=== PATIENT | female | born 1965 | race Caucasian/White ===

== ENCOUNTER → 2017-07-19 | Outpatient (CLI) | payer BC ==
--- NOTE | 2017-07-20 08:15 | MM ---
Reason for exam: screening (asymptomatic). Last mammogram was performed 3 years and 10 months ago. Physical Findings: A clinical breast exam by your physician is recommended on an annual basis and results should be correlated with mammographic findings. MG Screening Mammo w CAD Bilateral CC and MLO view(s) were taken. Prior study comparison: September 26, 2013, bilateral digital screening mammo w/CAD. June 16, 2010, bilateral digital screening mammogram. There are scattered fibroglandular densities. There is no discrete abnormality. ASSESSMENT: Negative, BI-RAD 1 RECOMMENDATION: Routine screening mammogram of both breasts in 1 year.
== END | disposition home or self-care (01) ==
LOC: RADMAMWWP 09:51
PROVIDERS: ATTEND Obstetrics & Gynecology
DX: Z12.31 Encounter for screening mammogram for malignant neoplasm of breast (principal)
CPT/HCPCS: 77067

== ENCOUNTER → 2018-02-04 | Outpatient (CLI) | payer BC ==
[2018-02-04 13:44] LABS: Prothrombin Time 9.9 sec (9.0-12.0)
== END | disposition home or self-care (01) ==
LOC: LABPAT 13:01
PROVIDERS: ATTEND Orthopaedic Surgery
DX: Z01.812 Encounter for preprocedural laboratory examination (principal); T84.032D Mechanical loosening of internal right knee prosthetic joint, subsequent encounter; Z51.81 Encounter for therapeutic drug level monitoring; Z79.01 Long term (current) use of anticoagulants; Z96.651 Presence of right artificial knee joint
CPT/HCPCS: 36415; 85610; 87070

== ENCOUNTER 2018-02-08 08:00 | Inpatient (IN) | payer BC ==
[2018-01-27 11:17] VITALS: BMI 32.4
--- NOTE | 2018-02-07 09:19 | HP ---
HISTORY AND PHYSICAL CHIEF COMPLAINT: Right knee pain. 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 She had a total knee arthroplasty in 2011. She has had pain ever since. She notes occasional giving way and swelling. She has had a recent injection by another orthopedic surgeon. She has been wearing a brace. She notes it bothers her with all weight bearing activities. PAST MEDICAL HISTORY: Significant for arthritis. PAST SURGICAL HISTORY: Significant for bilateral knee surgery to include right knee arthroscopy and subsequent total knee arthroplasty and left knee arthroscopy. CURRENT MEDICATIONS: Aspirin and Tylenol. ALLERGIES: She notes allergies to AUGMENTIN. FAMILY HISTORY: Family history is negative. SOCIAL HISTORY: Social history is negative for current tobacco or alcohol use. REVIEW OF SYSTEMS: Sixteen point review of systems otherwise reviewed and is noncontributory. PHYSICAL EXAMINATION: On examination, the patient is a well-developed, well-nourished female, approximately 5 feet 4 inches, 180 pounds of mesomorphic habitus. HEENT exam is nonfocal. Neck is supple. She has painless passive motion to her right hip. Straight leg raise is negative. Active motion right knee -8 to 85 degrees of flexion. She is tender about the medial and lateral joint line. She has mild effusion. She has a healed incision. There is no increased warmth or erythema. She has moderate valgus laxity. Her distal neurovascular exam appears intact in the right lower extremity. X-rays obtained in the office of the right knee show a total knee arthroplasty with malpositioning of the tibial component. There is lucency about the tibial base plate. There is also lucency about the anterior aspect of the femoral component. 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 RECOMMENDATIONS: I talked to the patient at length regarding her condition and treatment options. At this point, she is quite symptomatic and limited because of pain. She opts to proceed with surgery. We will plan to proceed with right revision total knee arthroplasty. Risks and benefits were discussed at length in layman's terms. We will institute DVT prophylaxis postoperatively. MMODL / IJN: [id number] /
[~2018-02-08 08:00] MED LIST: ACETAMINOPHEN TAB 500 MG TAB PO ONE; DEXAMETHASONE SOD PHOSPHATE 10 MG/ML 1 ML VIAL IV ONE; LIDOCAINE 1% 20 ML VIAL (10MG/ML) FOR IV START INTRADERMA PRN; MELOXICAM 7.5 MG TAB PO ONE; MIDAZOLAM 2 MG/2 ML VIAL IV PRN; ONDANSETRON 4 MG/2 ML VIAL IVP ONE; TRANEXAMIC ACID 1,000 MG in SODIUM CHLORIDE 0.9% 50 ML IVPB ONE; ceFAZolin IN SWFI 2 GM/20 ML SYRINGE IVP ONE; fentaNYL (PF) 50 MCG/ML 2 ML AMP IV PRN
[2018-02-08] MEDS: LACTATED RINGERS 1,000 ML IV SCH ×2 (11:20→18:53)
[2018-02-08] MEDS ORDERED: MIDAZOLAM 2 MG/2 ML VIAL ONE ×2 (11:55→14:30)
[2018-02-08] MEDS ORDERED: fentaNYL (PF) 50 MCG/ML 2 ML AMP ONE ×2 (11:56→14:30)
[2018-02-08] MEDS ORDERED: MIDAZOLAM 2 MG/2 ML VIAL IVP ONE (12:06)
--- NOTE | 2018-02-08 13:01 | P.ONQ ---
Anesthesiology Proc Note - PNB - Peripheral Nerve Block Performed Right Adductor Canal Infusion Time Out Performed: Yes Procedure Start Time: 12:06 Procedure Stop Time: 12:22 Indication: Acute Post-Operative Pain, Requested by physician Sedation Type: Sedate with meaningful contact maintained Preparation: Sterile Dressing Position: Supine Catheter: Indwelling Needle Types: On-Q Needle Size: 100mm (4") Needle Gauge: 21 Technique: Ultrasound Injectate: 0.5% Ropivacaine (see comment for volume) (ropi .5%) Blood Aspirated: No Pain Paresthesia on Injection Noted: No Resistance on Injection: Normal Events: Uneventful and Well Tolerated
[2018-02-08] MEDS ORDERED: TRANEXAMIC ACID 1,000 MG/10 ML VIAL ONE (14:30)
[2018-02-08] MEDS ORDERED: PROPOFOL 10 MG/ML 20 ML VIAL IV ONE (14:30)
[2018-02-08] MEDS ORDERED: SODIUM CHLORIDE 0.9% 100 ML BAG ONE (14:30)
[2018-02-08] MEDS ORDERED: LABETALOL 5 MG/ML VIAL MDV ONE (14:30)
[2018-02-08] MEDS ORDERED: HYDROmorphone (PF) 1 MG/ML ONE (14:30)
[2018-02-08] MEDS ORDERED: ceFAZolin 3,000 MG in SODIUM CHLORIDE 0.9% IRRIGATIO 3,000 ML IRRIGATION ONE (14:57)
[2018-02-08] MEDS ORDERED: LACTATED RINGERS 1,000 ML IV ONE (15:11)
[2018-02-08] MEDS: ROPIVACAINE 1,100 MG, SODIUM CHLORIDE 0.9% 330 ML MISCELLANE PRN ×4 (15:36→17:32)
[2018-02-08] MEDS ORDERED: ONDANSETRON 4 MG/2 ML VIAL IVP PRN (16:57)
[2018-02-08] MEDS ORDERED: HYDROmorphone 1 MG/ML 1 ML SYRINGE IVP PRN ×3 (16:57)
[2018-02-08] MEDS ORDERED: traMADol 50 MG TAB PO PRN (16:57)
[2018-02-08] MEDS ORDERED: MAGNESIUM HYDROXIDE 2,400 MG/10 ML CUP PO PRN (16:57)
[2018-02-08] MEDS ORDERED: NALOXONE 0.4 MG/ML 1 ML VIAL IV PRN (16:57)
--- NOTE | 2018-02-08 17:24 | P.OP ---
Date of Procedure: 02/08/18 Preoperative Diagnosis: Aseptic loosening right total knee arthroplastypainful Postoperative Diagnosis: Same Procedure(s) Performed: Revision right total knee arthroplasty Implants: Depuy TC3 size 2 cemented femoral component, size 2 cemented tibial component, 12.5 mm articular surface, 4 mm distal lateral femoral augment, 5 mm medial tibial plateau augment. Anesthesia: spinal Surgeon: Darien Vincent Steam Fitter #1: Anam Padilla Estimated Blood Loss (ml): 100 Pathology: other (Frozen section) Condition: stable Disposition: PACU Indications for Procedure: The patient's a 52-year-old female who presents with progressive right knee pain and instability consistent with aseptic loosening of her right total knee arthroplasty. A discussion of the risks and benefits of operative intervention was made with patient. She opted to proceed with surgery. Operative risks to include infection, neurovascular injury, development of blood clots, possible component loosening, possible component failure need for subsequent procedures was discussed. Informed consent was obtained. Operative Findings: As below Description of Procedure: The patient was brought to the operating room, and after induction of spinal anesthesia the right lower extremity was prepped and draped in normal fashion. The tourniquet was inflated to 270 mmHg. This incision was utilized. The skin and subcu changed tissues were divided sharply. Electrocautery was used for hemostasis. A medial parapatellar arthrotomy was performed. The patella was everted. The medial soft tissues to include the superficial and deep portions medial collateral ligament were elevated subperiosteally. The knee was flexed. The polyethylene was easily removed. A small sagittal saw was utilized for interruption of the cement mantle on the femoral and tibial components. These were easily removed with minimal bone loss. She did have significant compression of the medial tibial plateau. Synovial tissue was excised and sent for frozen section which showed no active significant acute inflammation. The previous cement was removed. The tibial canal was then reamed distally to 12 mm. The proximal reamer was inserted the appropriate depth as well. The proximal tibial 29 mm broach was inserted to the appropriate depth. There was deficient bone medially therefore planned on a 5 mm medial wedge. The tibia sized most appropriate size to. The trial component was placed and the medial tibial cut was made to facilitate the 5 mm wedge. Minimal bone was resected laterally. Attention was then paid towards preparing the distal femur. An intramedullary guide was gently inserted for the distal cutting block. The distal cutting block was placed and I planned on a 4 mm augment laterally. The size 2 femoral cutting block was then placed with a 4 mm distal lateral augment. The anterior, posterior, and chamfer cuts were freshened up. There was minimal if any bone loss. The box guide was placed and the box cut was made with a reciprocating saw. The bone was removed one block. The trial size 2 TC 3 femoral component was placed and was fully seated. A 12.5 mm articular surface was placed. The knee was taken through range of motion. It was stable in flexion and extension with varus and valgus stress. I was able to obtain full flexion and extension. Attention was then paid towards the patella component. Fibrous tissue was removed that was covering this. The patellar components appear to be well fixed and tracked well. The wound was then irrigated with pulsatile lavage. The trial components were then removed. The tibial component was assembled and was seated. Cement was placed under the tibial base plate would but not on the metaphyseal sleeve. This was fully seated. The femoral component was cemented in placed and was fully seated. Excess cement was removed. The 12.5 mm articular surface displaced and knee was put in full extension. After the cement had sufficiently hardened, the knee was again taken through range of motion. Again I had good stability in flexion and extension with varus and valgus stress. Pulsatile lavage was again utilized. The tourniquet was deflated the proximal 100 minutes total tourniquet time. Final hemostasis was obtained with electrocautery. The medial parapatellar arthrotomy was closed with #2 Ethibond suture. A deep drain was placed exiting laterally. The subcutaneous tissues were reapproximated interrupted 2-0 Vicryl sutures. Skin was reapproximated with with 3-0 subcuticular strata fix suture. Skin tape and adhesive was applied. A sterile dressing was applied. The patient was awoken from sedation and transferred to recovery room in good condition. Blood loss was estimated at 100 cc. No complications were incurred. Sponge and needle counts were correct in the case.
[2018-02-08] MEDS: HYDROmorphone 1 MG/ML 1 ML SYRINGE IVP ONE ×2 (17:47→17:55)
--- NOTE | 2018-02-08 19:26 | XR ---
PROCEDURE: XR knee limited RT 2 views DATE AND TIME: 02/08/2018 5:44 PM REFERRING PHYSICIAN: Anam Padilla CLINICAL INDICATION: PHH, Evaluation for Postop abnormality and alignment TECHNIQUE: AP and crosstable lateral views. COMPARISON: None FINDINGS: Right TKR in anatomic position and alignment. Lateral surgical drain noted anteriorly. Post operative changes appreciated, no unexpected postoperative findings. IMPRESSION: Postoperative 2 views.
[2018-02-08] MEDS: SENNOSIDES-DOCUSATE SODIUM 1 EACH TAB PO SCH (19:53)
[2018-02-08] MEDS: LISINOPRIL 10 MG TAB PO SCH (19:53)
[2018-02-08] MEDS: HYDROcodone/APAP 7.5-325MG 1 EACH TAB PO PRN (19:54)
[2018-02-08] MEDS: ceFAZolin IN SWFI 2 GM/20 ML SYRINGE IVP SCH (23:30)
[2018-02-09] MEDS: HYDROcodone/APAP 7.5-325MG 1 EACH TAB PO PRN ×4 (02:39→20:32)
--- NOTE | 2018-02-09 05:27 | P.PN ---
Progress Note - Text Progress Note Date: 02/09/18 52 y/o female s/p right knee TKA revision with Dr. Vincent. Doing well, requiring minimal narcotics. Has slept well overnight. Reports her pain is 3-4 /10, having some anterior knee pain but overall a much better experience than previous surgery. Reports some numbness in the area but no motor weakness. Plan is to continue with current settings.
[2018-02-09 07:12] LABS: Basophils % (A) 0 %; Eosinophils % (A) 0 %; HCT 34.3 % (34.0-46.0); HGB 10.8 gm/dL (11.4-16.0); Lymphocytes # (A) 1.6 k/uL (1.0-4.8); Lymphocytes % (A) 11 %; MCH 31.2 pg (25.0-35.0); MCHC 31.5 g/dL (31.0-37.0); Monocytes # (A) 0.7 k/uL (0-1.0); Monocytes % (A) 5 %; Neutrophils # (A) 12.5 k/uL (1.3-7.7); Neutrophils % (A) 84 %; Platelet Count 285 k/uL (150-450); RBC 3.47 m/uL (3.80-5.40); WBC 14.9 k/uL (3.8-10.6)
[2018-02-09 08:15] LABS: Anion Gap 7 mmol/L; Blood Urea Nitrogen 13 mg/dL (7-17); Calcium 9.1 mg/dL (8.4-10.2); Carbon Dioxide 24 mmol/L (22-30); Chloride 106 mmol/L (98-107); Glucose 114 mg/dL (74-99); Potassium 4.8 mmol/L (3.5-5.1); Sodium 137 mmol/L (137-145)
[2018-02-09] MEDS: LISINOPRIL 10 MG TAB PO SCH (08:56)
[2018-02-09] MEDS: RIVAROXABAN 10 MG TAB PO SCH (08:56)
[2018-02-09] MEDS: ceFAZolin IN SWFI 2 GM/20 ML SYRINGE IVP SCH (11:49)
--- NOTE | 2018-02-09 13:24 | P.PN ---
Subjective Progress Note Date: 02/09/18 Principal diagnosis: Status post r revision ight total knee arthroplasty Patient seen today resting in her hospital bed, she appears comfortable. She's been ambulating well with physical therapy. She denies any chest pain or shortness of breath. Objective - Vital Signs Vital signs: Vital Signs Temp 97.8 F 02/09/18 07:53 Pulse 76 02/09/18 07:53 Resp 16 02/09/18 07:53 BP 112/67 02/09/18 07:53 Pulse Ox 97 02/09/18 07:53 Intake & Output 02/08/18 02/09/18 02/09/18 18:59 06:59 18:59 Intake Total 1801 1800 Output Total 850 200 300 Balance 951 1600 -300 Weight 83.007 kg Intake: IV 1801 Intake, IV Titration 1600 Amount Lactated Ringers 1,000 ml 1600 @ 100 mls/hr IV .Q10H [facility] Rx#:[id number] Other 200 Output: Drainage 200 Right Knee 200 Urine 750 300 Uretheral (Veliz) 300 Estimated Blood Loss 100 Other: Voiding Method Indwelling Catheter Indwelling Catheter - Exam Right lower extremity: Incision is clean, dry, and intact. The prineo tape is in good condition. There is minimal soft tissue swelling and ecchymosis surrounding the medial and lateral aspects of the incision. Calf is soft, no tenderness with palpation. Plantar flexion, dorsiflexion, EHL, FHL are intact. Sensory exam to light touch throughout the extremity is intact, dorsal pedis pulses 2+. - Labs CBC & Chem 7: 02/09/18 06:51 02/09/18 06:51 Labs: Abnormal Lab Results - Last 24 Hours (Table) 02/09/18 02/09/18 Range/Units 06:51 06:51 WBC 14.9 H (3.8-10.6) k/uL RBC 3.47 L (3.80-5.40) m/uL Hgb 10.8 L (11.4-16.0) gm/dL Neutrophils # 12.5 H (1.3-7.7) k/uL Glucose 114 H (74-99) mg/dL Assessment and Plan Plan: Assessment: 1. Postop day 1 status post revision right total knee arthroplasty Plan: Pain control, continue supportive oral medication GI and DVT prophylaxis, continue current medication Daily dressing changes/ice and elevate Encourage incentive spirometer Medical recommendations Discharge planning: Patient will likely be discharged tomorrow Time with Patient: Less than 30
--- NOTE | 2018-02-09 13:35 | P.CONS ---
History of Present Illness - Reason for Consult Recommendations regarding antidepressive medications. - History of Present Illness 52-year-old female came in for revision arthroplasty of the right knee. Patient 's x-ray underwent surgery for this point of time patient the did pass gas did not have any bowel movement yet that any fever chills nausea vomiting doesn't have a dennison catheter. no surgical drainage in place. Review of Systems REVIEW OF SYSTEMS: CONSTITUTIONAL: No fever, no malaise, no fatigue. HEENT: No recent visual problems or hearing problems. Denied any sore throat. CARDIOVASCULAR: No chest pain, orthopnea, PND, no palpitations, no syncope. PULMONARY: No shortness of breath, no cough, no hemoptysis. GASTROINTESTINAL: No diarrhea, no nausea, no vomiting, no abdominal pain. Normoactive bowel sounds. NEUROLOGICAL: No headaches, no weakness, no numbness. HEMATOLOGICAL: Denies any bleeding or petechiae. GENITOURINARY: Denies any burning micturition, frequency, or urgency. MUSCULOSKELETAL/RHEUMATOLOGICAL: Denies any joint pain, swelling, or any muscle pain. ENDOCRINE: Denies any polyuria or polydipsia. The rest of the 14-point review of systems is negative. Past Medical History Past Medical History: Deep Vein Thrombosis (DVT), GERD/Reflux, Osteoarthritis ( OA), Skin Disorder Additional Past Medical History / Comment(s): varicose veins,urinary freq and nighttime freq,sun rash to face,DVT post Lt total knee History of Any Multi-Drug Resistant Organisms: None Reported Past Surgical History: Joint Replacement Additional Past Surgical History / Comment(s): rt knee replacement,left knee replacement Past Anesthesia/Blood Transfusion Reactions: No Reported Reaction Additional Past Anesthesia/Blood Transfusion Reaction / Comm: takes awhile to wake up, and woke up during last surgery,no hx blood transfusion Smoking Status: Never smoker - Past Family History Mother Family Medical History: No Reported History Sister(s) Family Medical History: Cancer Medications and Allergies Home Medications Medication Instructions Recorded Confirmed Type Aspirin 81 mg PO DAILY 01/27/18 02/08/18 History Calcium Carbonate [Tums] 500 mg PO DAILY PRN 01/27/18 02/08/18 History Cholecalciferol (Vitamin D3) 2,000 unit PO DAILY 01/27/18 02/08/18 History [Vitamin D3] Multivitamins, Thera [Multivitamin 1 tab PO DAILY 01/27/18 02/08/18 History (formulary)] Ergocalciferol [Vitamin D2] 50,000 unit PO Q7D 02/04/18 02/08/18 History Lisinopril [Zestril] 10 mg PO 1800 02/04/18 02/08/18 History Acetaminophen Tab [Tylenol Tab] 1,000 mg PO BID PRN 02/08/18 02/08/18 History Allergies Allergy/AdvReac Type Severity Reaction Status Date / Time amoxicillin [From Augmentin] Allergy Rash/Hives Verified 02/08/18 19:38 clavulanic acid Allergy Rash/Hives Verified 02/08/18 19:38 [From Augmentin] Physical Exam Vitals: Vital Signs Temp Pulse Pulse Resp BP BP Pulse Ox 02/09/18 07:53 97.8 F 76 16 112/67 97 02/09/18 00:55 98.4 F 98 16 121/77 97 02/08/18 20:30 85 128/76 02/08/18 20:15 84 134/79 02/08/18 20:00 85 130/77 02/08/18 19:45 83 130/75 02/08/18 19:30 82 135/81 02/08/18 19:15 86 134/85 02/08/18 19:00 89 133/84 02/08/18 18:45 82 142/89 02/08/18 18:30 97.9 F 82 16 168/103 97 02/08/18 18:06 83 16 130/73 94 L 02/08/18 17:50 80 16 172/97 138/79 97 02/08/18 17:35 71 16 168/96 100 02/08/18 17:20 98 F 90 16 190/110 96 Intake and Output 02/08/18 02/09/18 02/09/18 22:59 06:59 14:59 Intake Total 1600 1000 Output Total 850 200 300 Balance 750 800 -300 Intake: IV 800 Intake, IV Titration 800 800 Amount Lactated Ringers 1,000 ml 800 800 @ 100 mls/hr IV .Q10H [facility] Rx#:[id number] Other 200 Output: Drainage 200 Right Knee 200 Urine 750 300 Uretheral ([place]enn[place]) 300 Estimated Blood Loss 100 Other: Voiding Method Indwelling Catheter Indwelling Catheter Indwelling Catheter Weight 83.007 kg PHYSICAL EXAMINATION: GENERAL: The patient is alert and oriented x3, not in any acute distress. Well developed, well nourished. HEENT: Pupils are round and equally reacting to light. EOMI. No scleral icterus. No conjunctival pallor. Normocephalic, atraumatic. No pharyngeal erythema. No thyromegaly. CARDIOVASCULAR: S1 and S2 present. No murmurs, rubs, or gallops. PULMONARY: Chest is clear to auscultation, no wheezing or crackles. ABDOMEN: Soft, nontender, nondistended, normoactive bowel sounds. No palpable organomegaly. MUSCULOSKELETAL: Deferred to arthritic surgery. EXTREMITIES: No cyanosis, clubbing, or pedal edema. NEUROLOGICAL: Gross neurological examination did not reveal any focal deficits. SKIN: No rashes. Results CBC & Chem 7: 02/09/18 06:51 02/09/18 06:51 Labs: Abnormal Lab Results - Last 24 Hours (Table) 02/09/18 02/09/18 Range/Units 06:51 06:51 WBC 14.9 H (3.8-10.6) k/uL RBC 3.47 L (3.80-5.40) m/uL Hgb 10.8 L (11.4-16.0) gm/dL Neutrophils # 12.5 H (1.3-7.7) k/uL Glucose 114 H (74-99) mg/dL Assessment and Plan Plan: -Hypertension: Blood pressure is fairly controlled on her home regimen of 5 antidepressive medication which can be continued. -Postoperative day one status post revision arthroplasty of the right knee: Pain management due to prophylaxis per primary service -History of DVT in the past -Osteoarthritis primary multiple joints.
[2018-02-09] MEDS ORDERED: HYDROmorphone 2 MG TAB PO PRN ×2 (15:42)
[2018-02-09] MEDS ORDERED: HYDROmorphone 4 MG TABLET PO PRN (15:43)
[2018-02-09] MEDS ORDERED: LISINOPRIL 10 MG TAB PO SCH (18:00)
[2018-02-09] MEDS: LACTATED RINGERS 1,000 ML IV SCH (19:06)
[2018-02-09] MEDS: SENNOSIDES-DOCUSATE SODIUM 1 EACH TAB PO SCH (19:41)
[2018-02-10] MEDS: HYDROcodone/APAP 7.5-325MG 1 EACH TAB PO PRN ×3 (02:16→13:08)
[2018-02-10] MEDS: RIVAROXABAN 10 MG TAB PO SCH (08:05)
[2018-02-10] MEDS ORDERED: LISINOPRIL 10 MG TAB PO SCH (09:00)
[2018-02-10 09:16] VITALS: BP 142/96; PULSE 100; RESP 18; TEMP 98.4
--- NOTE | 2018-02-10 10:27 | P.PN ---
Subjective Progress Note Date: 02/10/18 Principal diagnosis: Status post r revision ight total knee arthroplasty Patient seen today resting in her hospital bed, she appears comfortable. She's been ambulating well with physical therapy. She denies any chest pain or shortness of breath. Objective - Vital Signs Vital signs: Vital Signs Temp 98.4 F 02/10/18 09:00 Pulse 100 02/10/18 09:00 Resp 18 02/10/18 09:00 BP 142/96 02/10/18 09:00 Pulse Ox 99 02/10/18 09:00 Intake & Output 02/09/18 02/10/18 02/10/18 18:59 06:59 18:59 Intake Total 240 500 Output Total 300 Balance -60 500 Weight 83.007 kg Intake: Oral 240 Other 500 Output: Urine 300 Uretheral (Veliz) 300 Other: Voiding Method Indwelling Catheter # Voids 2 3 - Exam Right lower extremity: Incision is clean, dry, and intact. The prineo tape is in good condition. There is minimal soft tissue swelling and ecchymosis surrounding the medial and lateral aspects of the incision. Calf is soft, no tenderness with palpation. Plantar flexion, dorsiflexion, EHL, FHL are intact. Sensory exam to light touch throughout the extremity is intact, dorsal pedis pulses 2+. - Labs CBC & Chem 7: 02/09/18 06:51 02/09/18 06:51 Assessment and Plan Plan: Assessment: 1. Postop day #2 status post revision right total knee arthroplasty Plan: Pain control, continue supportive oral medication GI and DVT prophylaxis, will dc on Eliquis 2.5mg bid for 14 days Daily dressing changes/ice and elevate Encourage incentive spirometer Medical recommendations Discharge planning: Patient will be dc home today Time with Patient: Less than 30
--- NOTE | 2018-02-10 10:32 | P.DS ---
Providers Date of admission: 02/08/18 10:51 Expected date of discharge: 02/10/18 Attending physician: Darien Vincent Consults: 02/08/18 16:59 Consult Physician Routine Consulting Provider: Sukumar Frankel Consult Reason/Comments: Medical Management Do you want consulting provider notified?: Yes Primary care physician: Isra Newby [facility] Course: Date of admission: 02/08/2018 Date of discharge: 02/10/2018 Admission diagnosis: Status post revision right total knee arthroplasty Discharge diagnosis: Same Attending physician: Dr. Vincent Surgical procedures: Revision right total knee arthroplasty Brief history: Patient is a 52-year-old female with a history of with progress pain involving the right knee. Patient is a history of a right total knee arthroplasty, has progressively gotten worse with pain over the last few years. She's tried all conservative measures at this time. She elected to proceed with a revision right total knee arthroplasty. Hospital course: Details of patient's surgery can be found in operative report. Patient tolerated the procedure well and was subsequently transported to orthopedic floor. Patient's orthopeidc and medical care was provided daily. Patient had daily laboratory tests performed for evaluation of overall blood counts. Patient had daily physical therapy to include strengthening range of motion as well as education with walker ambulation. Patient had daily CPM usage as part of their physical therapy program. Patient was treated with Xarelto for their postoperative DVT prophylaxis during their inpatient stay. Patient was noted to have a relatively uneventful postoperative course. Patient reported satisfactory pain control with oral pain medications by postoperative day 0. Patient showed satisfactory progress with physical therapy. Patient moved steadily through the program and had no difficulty meeting the goals by postoperative day 2. Given patient's otherwise satisfactory course and having met physical therapy goals, plan is to discharge patient home on postoperative day 2. Discharge condition/disposition: Patient will be discharged home in stable condition. Discharge medications: Instructions are given on resumption of patient's normal daily medications per primary care recommendation, in addition patient will be prescribed Tulia 10 mg/325 mg, tramadol 50 mg, Colace 100 mg, Eliquis 2.5mg. Discharge instructions: 1. Wound care and infection precautions, keep incision dry and covered while showering], no lotions, creams, moisturizers. No soaking, tubs, pools, hottubs. Do not scrub over the incision. 2. Weight-bear [as tolerated] with walker / cane until follow-up. 3. Ice and elevate when necessary. Do not exceed 20 minutes per hour with ice pack. 4. Utilize compression sleeve until seen at first follow up appointment. 5. Visiting nursing care. 6. Home physical therapy [including home CPM]. 7. Pain meds and anticoagulants per prescription. 8. Pain medication has potential to cause constipation. Increase oral fluid and fiber intake. Contact primary care provider if you have not had a bowel movement within 48 hours after discharge 9. No anti-inflammatory medication until discussed at first post operative visit, this including Motrin, Aleve, Mobic, Diclofenac. 10. Follow up in office at 2 weeks postop with Tashi Padilla PA-C 11. Follow up with your primary care doctor 7-10 days after discharge. 12. Contact [facility] with any questions, . Procedures: Revision right total knee arthroplasty Patient Condition at Discharge: Good Plan - Discharge Summary Discharge Rx Participant: Yes New Discharge Prescriptions: New Apixaban [Eliquis] 2.5 mg PO BID #30 tab Docusate [Colace] 100 mg PO DAILY #30 capsule Hydrocodone/Acetaminophen [Tulia 10-325] 1 - 2 each PO Q6H PRN #56 tab PRN Reason: Pain traMADol HCl [Ultram] 50 mg PO Q6H PRN #28 tab PRN Reason: Pain No Action Aspirin 81 mg PO DAILY Multivitamins, Thera [Multivitamin (formulary)] 1 tab PO DAILY Cholecalciferol (Vitamin D3) [Vitamin D3] 2,000 unit PO DAILY Calcium Carbonate [Tums] 500 mg PO DAILY PRN PRN Reason: Heartburn Lisinopril [Zestril] 10 mg PO 1800 Ergocalciferol [Vitamin D2] 50,000 unit PO Q7D Acetaminophen Tab [Tylenol Tab] 1,000 mg PO BID PRN PRN Reason: Pain Discharge Medication List Aspirin 81 mg PO DAILY 01/27/18 [History] Calcium Carbonate [Tums] 500 mg PO DAILY PRN 01/27/18 [History] Cholecalciferol (Vitamin D3) [Vitamin D3] 2,000 unit PO DAILY 01/27/18 [History] Multivitamins, Thera [Multivitamin (formulary)] 1 tab PO DAILY 01/27/18 [History ] Ergocalciferol [Vitamin D2] 50,000 unit PO Q7D 02/04/18 [History] Lisinopril [Zestril] 10 mg PO 1800 02/04/18 [History] Acetaminophen Tab [Tylenol Tab] 1,000 mg PO BID PRN 02/08/18 [History] Apixaban [Eliquis] 2.5 mg PO BID #30 tab 02/10/18 [Rx] Docusate [Colace] 100 mg PO DAILY #30 capsule 02/10/18 [Rx] Hydrocodone/Acetaminophen [Tulia 10-325] 1 - 2 each PO Q6H PRN #56 tab 02/10/18 [Rx] traMADol HCl [Ultram] 50 mg PO Q6H PRN #28 tab 02/10/18 [Rx] Follow up Appointment(s)/Referral(s): [facility], [NON-STAFF] - Anam Padilla, GRECIA [PHYSICIAN COOKING [employer]OW [employer]OST] - 2 Weeks Activity/Diet/Wound Care/Special Instructions: Orthopedic Discharge Instructions: 1. Wound care and infection precautions, keep incision dry and covered while showering, no lotions, creams, moisturizers. No soaking, pools, hot tubs. Do not scrub over incision. 2. Weight-bear as tolerated with walker / cane until follow-up. 3. Ice and elevate when necessary. Do not exceed 20 minutes per hour with ice pack. 4. Utilize compression sleeve until seen at first follow up appointment. 5. Pain meds and anticoagulants per prescription. 6. Pain medication has potential to cause constipation. Increase oral fluid and fiber intake. Contact primary care provider if you have not had a bowel movement within 48 hours after discharge. 7. No anti-inflammatory medication until discussed at first post operative visit, this including Motrin, Aleve, Mobic, Diclofenac. 8. Follow up in office at 2 weeks postop with Tashi Padilla PA-C 9. Follow up with your primary care doctor 7-10 days after discharge. 10. Contact [facility] with any questions, . Discharge Disposition: HOME WITH HOME HEALTH SERVICES
--- NOTE | 2018-02-10 15:01 | P.PN ---
Subjective No overnight events patient is clinically doing well. Can be discharged from medical perspective Objective - Vital Signs Vital signs: Vital Signs Temp 98.4 F 02/10/18 09:00 Pulse 100 02/10/18 09:00 Resp 18 02/10/18 09:00 BP 142/96 02/10/18 09:00 Pulse Ox 99 02/10/18 09:00 Intake & Output 02/09/18 02/10/18 02/10/18 18:59 06:59 18:59 Intake Total 240 500 Output Total 300 Balance -60 500 Weight 83.007 kg Intake: Oral 240 Other 500 Output: Urine 300 Uretheral (Veliz) 300 Other: Voiding Method Indwelling Catheter # Voids 2 3 - Exam PHYSICAL EXAMINATION: GENERAL: The patient is alert and oriented x3, not in any acute distress. Well developed, well nourished. HEENT: Pupils are round and equally reacting to light. EOMI. No scleral icterus. No conjunctival pallor. Normocephalic, atraumatic. No pharyngeal erythema. No thyromegaly. CARDIOVASCULAR: S1 and S2 present. No murmurs, rubs, or gallops. PULMONARY: Chest is clear to auscultation, no wheezing or crackles. ABDOMEN: Soft, nontender, nondistended, normoactive bowel sounds. No palpable organomegaly. MUSCULOSKELETAL: Deferred to arthritic surgery. EXTREMITIES: No cyanosis, clubbing, or pedal edema. NEUROLOGICAL: Gross neurological examination did not reveal any focal deficits. SKIN: No rashes. - Labs CBC & Chem 7: 02/09/18 06:51 02/09/18 06:51 Assessment and Plan Plan: -Hypertension: Blood pressure is fairly controlled on her home regimen of antihypertensive medication which can be continued. -Postoperative day 2 status post revision arthroplasty of the right knee: Pain management due to prophylaxis per primary service -History of DVT in the past -Osteoarthritis primary multiple joints. Patient is medically stable to be discharged
== END 2018-02-10 13:35 | disposition home health service (06) | DRG 468 ==
LOC: 2ORMAIN 10:51 → 3SUR 17:08
PROVIDERS: ADMIT Orthopaedic Surgery; ATTEND Orthopaedic Surgery
PROC: 0SRC0J9 Replacement of Right Knee Joint with Synthetic Substitute, Cemented, Open Approach (ICD-10-PCS; 2018-02-08)
PROC: 0SPC0JZ Removal of Synthetic Substitute from Right Knee Joint, Open Approach (ICD-10-PCS; principal; 2018-02-08 12:30)
DX: T84.032A Mechanical loosening of internal right knee prosthetic joint, initial encounter (principal); I10 Essential (primary) hypertension; M25.361 Other instability, right knee; K21.9 Gastro-esophageal reflux disease without esophagitis; M19.91 Primary osteoarthritis, unspecified site; I83.90 Asymptomatic varicose veins of unspecified lower extremity; R35.0 Frequency of micturition; Z79.82 Long term (current) use of aspirin; Z79.899 Other long term (current) drug therapy; Z96.652 Presence of left artificial knee joint; Z86.718 Personal history of other venous thrombosis and embolism; Y79.2 Prosthetic and other implants, materials and accessory orthopedic devices associated with adverse incidents; Z82.49 Family history of ischemic heart disease and other diseases of the circulatory system
CPT/HCPCS: 80048; 85025; 88305; 88331

== ENCOUNTER → 2018-10-14 | Outpatient (CLI) | payer BC ==
--- NOTE | 2018-10-18 13:16 | MM ---
Reason for exam: screening (asymptomatic). Last mammogram was performed 1 year and 3 months ago. Physical Findings: A clinical breast exam by your physician is recommended on an annual basis and results should be correlated with mammographic findings. MG Screening Mammo w CAD Bilateral CC and MLO view(s) were taken. Prior study comparison: July 19, 2017, bilateral MG screening mammo w CAD. There are scattered fibroglandular densities. No significant changes when compared with prior studies. ASSESSMENT: Negative, BI-RAD 1 RECOMMENDATION: Routine screening mammogram of both breasts in 1 year.
== END | disposition home or self-care (01) ==
LOC: RADMAMWWP 11:53
PROVIDERS: ATTEND Family Medicine
DX: Z12.31 Encounter for screening mammogram for malignant neoplasm of breast (principal)
CPT/HCPCS: 77067

== ENCOUNTER 2018-10-18 09:04 | Day surgery (SDC) | payer BC ==
[2018-10-17 09:05] VITALS: BMI 31.0
[~2018-10-18 09:04] MED LIST changes: -ACETAMINOPHEN TAB 500 MG TAB PO ONE; -DEXAMETHASONE SOD PHOSPHATE 10 MG/ML 1 ML VIAL IV ONE; +LACTATED RINGERS 1,000 ML IV SCH; -MELOXICAM 7.5 MG TAB PO ONE; -MIDAZOLAM 2 MG/2 ML VIAL IV PRN; -ONDANSETRON 4 MG/2 ML VIAL IVP ONE; -TRANEXAMIC ACID 1,000 MG in SODIUM CHLORIDE 0.9% 50 ML IVPB ONE; -ceFAZolin IN SWFI 2 GM/20 ML SYRINGE IVP ONE; -fentaNYL (PF) 50 MCG/ML 2 ML AMP IV PRN
[2018-10-18 09:48] VITALS: TEMP 98.8
[2018-10-18] MEDS ORDERED: PROPOFOL 10 MG/ML 20 ML VIAL IV ONE (10:37)
[2018-10-18] MEDS ORDERED: MIDAZOLAM 2 MG/2 ML VIAL ONE (10:37)
[2018-10-18] MEDS ORDERED: fentaNYL (PF) 50 MCG/ML 2 ML AMP ONE (10:37)
--- NOTE | 2018-10-18 11:03 | P.PCN ---
Date of Procedure: 10/18/18 Procedure(s) Performed: Procedure: Total colonoscopy. Preoperative diagnosis: Screening for neoplasia. Postoperative diagnosis: Exam within normal limits. Preparation: HalfLytely prep. Sedation: Was provided by anesthesia. Brief clinical history: The patient is a 53-year-old female who is scheduled for this evaluation for screening for neoplasia age being her risk factor. No family history of colon cancer. She has no abdominal complaints, bleeding or anemia. This would be her first colonoscopy. Procedure: With the patient on her left lateral decubitus position and after informed consent and adequate sedation, the perianal area was inspected and it did not show any fissures or fistulas. There were no masses felt on digital rectal examination. The Olympus CFH 190L video colonoscope was then inserted in the rectum in the usual fashion and advanced to the cecum. The mucosa appeared healthy. No polyps or tumors were seen or any obvious diverticular disease or other pathology. I retroflexed the endoscope in the rectum before the endoscope was withdrawn. The patient tolerated the procedure well. Plan: The patient was reassured. She will follow-up with you as planned and I recommended repeat exam in 10 years.
[2018-10-18 11:23] VITALS: BP 125/84; PULSE 64; RESP 18
== END 2018-10-18 11:29 | disposition home or self-care (01) ==
LOC: ORWHC2ENDO 09:04
DX: Z12.11 Encounter for screening for malignant neoplasm of colon (principal); I10 Essential (primary) hypertension; K21.9 Gastro-esophageal reflux disease without esophagitis; M19.90 Unspecified osteoarthritis, unspecified site; Z86.718 Personal history of other venous thrombosis and embolism; Z96.653 Presence of artificial knee joint, bilateral; Z88.0 Allergy status to penicillin; Z79.899 Other long term (current) drug therapy
CPT/HCPCS: 81025; J2250; J3010; J2704; G0121

== ENCOUNTER → 2020-10-09 | Outpatient (CLI) | payer BC, MEDICARE ==
[2020-10-09 14:50] LABS: Basophils # (A) 0.04 X 10*3/uL (0.00-0.10); Basophils % (A) 0.5 %; Eosinophils # (A) 0.15 X 10*3/uL (0.04-0.35); Eosinophils % (A) 1.8 %; HCT 37.9 % (37.2-46.3); Lymphocytes # (A) 2.39 X 10*3/uL (0.90-5.00); Lymphocytes % (A) 28.8 %; MCH 30.6 pg (27.0-32.0); MCHC 31.7 g/dL (32.0-37.0); MCV 96.7 fL (80.0-97.0); Mean Platelet Volume 11.9 fL (9.5-12.2); Monocytes # (A) 0.76 X 10*3/uL (0.20-1.00); Monocytes % (A) 9.2 %; Neutrophils # (A) 4.93 X 10*3/uL (1.80-7.70); Neutrophils % (A) 59.3 %; Platelet Count 281 X 10*3/uL (140-440); RBC 3.92 X 10*6/uL (4.10-5.20); RDW 13.1 % (11.5-14.5)
[2020-10-09 19:03] LABS: Erythrocyte Sedimentation Rate 14 mm/Hr (0-30)
== END | disposition home or self-care (01) ==
LOC: LABWHC1 08:12
PROVIDERS: ATTEND Orthopaedic Surgery
DX: M25.50 Pain in unspecified joint (principal)
CPT/HCPCS: 36415; 85025; 85652; 86140

== ENCOUNTER → 2020-10-09 | Outpatient (CLI) | payer BC, MEDICARE ==
--- NOTE | 2020-10-09 13:49 | NM ---
EXAMINATION TYPE: NM bone 3 phase DATE OF EXAM: 10/09/2020 COMPARISON: NONE HISTORY: Left knee pain Triple phase bone scintigraphy was performed following the injection of 24.8 mCi Tc 99m MDP. Immedia te images and 5 hours post injection images acquired. FINDINGS: Angiographic a portion of the examination fails demonstrate evidence for asymmetric uptake. On the blood pool images is mildly increased uptake about the femoral component of the patient's pro sthesis on the left. The delayed images demonstrate mildly increased uptake about the left prosthesis about its tibial and femoral components. IMPRESSION: Mild increased uptake about the patient's left total knee arthroplasty as discussed above which may r eflect loosening and less likely infection. Correlate clinically.
== END | disposition home or self-care (01) ==
LOC: RADNMMAIN 07:35
PROVIDERS: ATTEND Orthopaedic Surgery
DX: M25.562 Pain in left knee (principal); Z96.652 Presence of left artificial knee joint
CPT/HCPCS: 78315; A9503

== ENCOUNTER → 2020-11-11 | Outpatient (CLI) | payer BC, MEDICARE | END | disposition home or self-care (01) | LOC: LABPAT 11:53 | PROVIDERS: ATTEND Orthopaedic Surgery | DX: Z01.812 Encounter for preprocedural laboratory examination (principal) | CPT/HCPCS: 87070 ==

== ENCOUNTER 2020-11-19 06:11 | Inpatient (IN) | payer BC, MEDICARE ==
[2020-11-13 11:21] VITALS: BMI 31.0
--- NOTE | 2020-11-17 16:26 | HP ---
HISTORY AND PHYSICAL CHIEF COMPLAINT: Left knee pain. HISTORY OF PRESENT ILLNESS: The patient is a 55-year-old female who presents with progressive left knee pain for the past year. She previously underwent total knee arthroplasty in 2011. She notes anterior pain along with swelling, giving way. She is having pain with weightbearing activities and with stairs. She has tried bracing and medications without much relief. She is having night symptoms. She denies fevers or chills. PAST MEDICAL HISTORY: Significant for asthma and arthritis. PAST SURGICAL HISTORY: Significant for right total knee arthroplasty with subsequent revision in addition to left total knee arthroplasty. CURRENT MEDICATIONS: Aspirin, tramadol, and ibuprofen. ALLERGIES: AUGMENTIN. FAMILY HISTORY: Noncontributory. SOCIAL HISTORY: Negative for current tobacco or alcohol use. REVIEW OF SYSTEMS: A 16-point review of systems otherwise reviewed and is noncontributory. PHYSICAL EXAMINATION: On examination, the patient is approximately 5 foot 3, 180 pounds of endomorphic habitus. HEENT exam is nonfocal. Neck is supple. She has painless passive motion of left hip. Active motion left knee -12 to 80 degrees of flexion. Incision is healed. There is no warmth or erythema. She has mild effusion. She is tender about the distal medial and lateral femur. She has mild valgus laxity. She does have an antalgic gait pattern. Her distal neurovascular exam appears intact in the left lower extremity. IMAGING: Previous x-rays of the left knee obtained in the office show a total knee arthroplasty with lucency about cement lateral to the medial tibial plateau in addition to some patellar [place]. There is also lucency about the posterior distal femur. Bone scan report left knee 10/09/2020 shows increased uptake involving the femoral component. 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 RECOMMENDATIONS: I talked to the patient at length regarding her condition and treatment options. At this point, she is having significant symptoms and limitation because of pain with any weightbearing activities that has progressed. After thorough discussion, she opts to proceed with surgery. We will plan to proceed with revision left total knee arthroplasty. Will institute DVT prophylaxis postoperatively. MMODL / IJN: [id number] /
[~2020-11-19 06:11] MED LIST changes: +ACETAMINOPHEN TAB 500 MG TAB PO PRN; +DEXAMETHASONE SOD PHOSPHATE 4 MG/ML 1 ML VIAL IV ONE; -LACTATED RINGERS 1,000 ML IV SCH; +LIDOCAINE 1% (10MG/ML) FOR IV START INTRADERMA PRN; -LIDOCAINE 1% 20 ML VIAL (10MG/ML) FOR IV START INTRADERMA PRN; +MELOXICAM 7.5 MG TAB PO PRN; +MIDAZOLAM 2 MG/2 ML VIAL IV PRN; +ONDANSETRON 4 MG/2 ML VIAL IVP ONE; +TRANEXAMIC ACID 1,000 MG in SODIUM CHLORIDE 0.9% 100 ML IVPB PRN
[2020-11-19] MEDS: LACTATED RINGERS 1,000 ML IV SCH (07:10)
[2020-11-19 07:48] LABS: INR 0.9 (<1.2); Prothrombin Time 9.9 sec (9.0-12.0)
[2020-11-19] MEDS ORDERED: TRANEXAMIC ACID 1,000 MG/10 ML VIAL ONE (07:50)
[2020-11-19] MEDS ORDERED: PROPOFOL 10 MG/ML 20 ML VIAL IV ONE (07:50)
[2020-11-19] MEDS ORDERED: SODIUM CHLORIDE 0.9% 100 ML BAG ONE (07:50)
[2020-11-19] MEDS ORDERED: ROPIVACAINE 5 MG/ML 30 ML VIAL ONE (07:50)
[2020-11-19] MEDS ORDERED: LIDOCAINE 1% INJ 10MG/ML (20 ML MDV) ONE (07:50)
[2020-11-19] MEDS ORDERED: MIDAZOLAM 2 MG/2 ML VIAL ONE (07:50)
[2020-11-19] MEDS ORDERED: fentaNYL (PF) 50 MCG/ML 2 ML AMP ONE (07:50)
[2020-11-19] MEDS ORDERED: DEXAMETHASONE SOD PHOSPHATE 4 MG/ML 1 ML VIAL ONE (07:50)
[2020-11-19] MEDS ORDERED: KETAMINE 10 MG/ML 20 ML VIAL ONE (07:50)
[2020-11-19] MEDS ORDERED: ROPIVACAINE 0.2%-NS ON-Q PUMP 1,090 MG, EMPTY PAIN BALL 1 EACH MISCELLANE PRN (09:31)
--- NOTE | 2020-11-19 09:34 | P.ANPRN ---
Procedure Note - Anesthesia - Nerve Block Performed Left Adductor Canal Infusion Time Out Performed: Yes Date of Procedure: 11/19/20 Procedure Start Time: 07:32 Procedure Stop Time: 07:41 Location of Patient: PreOp Indication: Acute Post-Operative Pain, Requested by Surgeon Sedation Type: Sedate with meaningful contact maintained Preparation: Sterile Prep, Sterile Dressing Position: Supine Catheter: Indwelling Needle Gauge: 21 Ultrasound used to visualize needle placement: Yes Ultrasound used to observe medication spread: Yes Blood Aspirated: No Pain Paresthesia on Injection Noted: No Resistance on Injection: Normal Image Stored and Saved: Yes Events: Uneventful and Well Tolerated (ropi .5% 20cc)
--- NOTE | 2020-11-19 09:54 | P.ANPRN ---
Procedure Note - Anesthesia - Nerve Block Performed Left iPack Single Time Out Performed: Yes Date of Procedure: 11/19/20 Procedure Start Time: 07:42 Procedure Stop Time: 07:46 Location of Patient: PreOp Indication: Acute Post-Operative Pain, Requested by Surgeon Sedation Type: Sedate with meaningful contact maintained Preparation: Sterile Prep Position: Supine Needle Types: Pajunk Needle Gauge: 21 Ultrasound used to visualize needle placement: Yes Ultrasound used to observe medication spread: Yes Blood Aspirated: No Pain Paresthesia on Injection Noted: No Resistance on Injection: Normal Image Stored and Saved: Yes Events: Uneventful and Well Tolerated (ropi .5% 20cc plus dexamethasone 4mg)
[2020-11-19] MEDS ORDERED: HYDROmorphone 1 MG/ML 1 ML SYRINGE IVP PRN (10:11)
[2020-11-19] MEDS ORDERED: NALOXONE 0.4 MG/ML 1 ML VIAL IV PRN (10:11)
[2020-11-19] MEDS ORDERED: MAGNESIUM HYDROXIDE 2,400 MG/10 ML CUP PO PRN (10:11)
[2020-11-19] MEDS ORDERED: ONDANSETRON 4 MG/2 ML VIAL IVP PRN (10:11)
[2020-11-19] MEDS ORDERED: ACETAMINOPHEN TAB 325 MG TAB PO PRN (10:11)
[2020-11-19] MEDS ORDERED: traMADol 50 MG TAB PO PRN (10:11)
[2020-11-19] MEDS ORDERED: HYDROcodone/APAP 7.5-325MG 1 EACH TAB PO PRN (10:13)
[2020-11-19] MEDS ORDERED: LACTATED RINGERS 1,000 ML IV ONE (10:24)
[2020-11-19] MEDS: HYDROmorphone 0.5 MG/0.5 ML SYRINGE IVP PRN ×5 (10:45→15:16)
--- NOTE | 2020-11-19 10:46 | P.OP ---
Date of Procedure: 11/19/20 Preoperative Diagnosis: Aseptic loosening left total knee arthroplasty Postoperative Diagnosis: Same Procedure(s) Performed: Revision left total knee arthroplasty of the femoral and tibial components along with the articular surface Implants: Depuy TC3 size 2 cemented femoral component, size 2-1/2 cemented tibial component, 30 mm tibial stem extension, 17.5 mm articular surface. Anesthesia: regional, spinal Surgeon: Darien Vincent Medical Insurance Coder #1: Anam Padilla Estimated Blood Loss (ml): 100 Pathology: other (Frozen section of synovium) Condition: stable Disposition: PACU Indications for Procedure: The patient is a 55-year-old female who presents with progressive left knee pain and instability after undergoing previous total knee arthroplasty. Clinically she is noted of evidence of instability along with aseptic loosening. A discussion of the risks and benefits of operative intervention was made with patient. She opted to proceed. Operative risks to include infection, neurovascular injury, fracture, instability, component failure and need for subsequent procedures was discussed. Informed consent was obtained. Operative Findings: As below Description of Procedure: The patient was brought to the operating room, and after induction of spinal anesthesia the left lower extremity was prepped and draped in normal fashion. The tourniquet was inflated to 270 mmHg. The previous midline incision was utilized approximately 3 finger breaths above the superior pole of patella to the medial aspect of the tibial tubercle. Skin and subcutaneous tissues were di vided sharply. Electrocautery was used for hemostasis. A medial parapatellar arthrotomy is performed. The medial soft tissues to include the superficial and deep portions of the medial collateral ligament were elevated subperiosteally. The patella was everted. The gutters were cleared. There was significant polyethylene debris present that was removed. The knee was then flexed. The locking mechanism for the polyethylene was removed and the polyethylene was taken out. This was inspected. There was significant delamination along with fracturing of the posterior medial portion of the polyethylene. Synovium was sent for frozen section which showed one small area of acute inflammation however overall chronic inflammation. A small sagittal saw was utilized to break the bonecement interface of the distal femur. This was then easily removed with minimal bone loss. The same was done with the tibial component. This was then easily removed. The previous tibial component was in moderate varus positioning. Attention was then paid towards preparing the tibia. A canal reamer was used to find the tibial canal. This was then reamed to the appropriate depth. I planned on a 30 mm x 13 mm tibial stem extension. The intramedullary guide was utilized to make a clean up cut on the proximal tibia. The trial component was then placed in the appropriate rotation. The tibia sized most appropriately at 2.5. This was left in place and attention was paid towards preparing the femur. There is no bone loss distally therefore a size 2 cutting block was pinned in place with rotation set by the anterior cortex. The anterior, posterior, and chamfer cuts were made. I did have 4 mm of deficit posterior medially. The box cutting guide was placed and box was cut utilizing a reciprocating saw. The bone was removed in one fragment. The trial size 2 femoral component was placed along with a 17.5 mm articular surface. I was able to obtain full flexion and extension with good stability with varus and valgus stress. The patella component was inspected and fibrous tissue was excised sharply. There was good fixation the patella and good tracking. Pulsatile lavage was utilized after removal of the trial components. The bony surfaces were dried. The tibial component was then cemented in place and was fully seated. Excess cement was removed. The femoral component cemented in placed and was fully seated. A trial 17.5 mm articular surface was placed and the knee was put in full extension. Pulsatile lavage was again utilized. After the cement had sufficiently hardened, the trial articular surface was removed and the final 17.5 mm articular surface was placed. The knee was again taken through range of motion and was felt to be stable in flexion and extension with varus and valgus stress. The tourniquet was then deflated with approximately 90 minutes total tourniquet time. Hemostasis was obtained with electrocautery. The medial parapatellar arthrotomy was closed with #2 Ethibond suture. The second dose of TXA was given. The subcutaneous tissues reapproximated interrupted 2-0 Vicryl sutures. The skin was reapproximated with 3-0 subcuticular strata fix suture. Skin tape and adhesive was applied. A sterile dressing was applied. The patient was then awoken from sedation and transferred to recovery room in good condition. Blood loss was estimated at 100 mL. No complications were incurred. Sponge and needle counts were correct at the end of the case. Tashi XIONG assisted of the major components the case to include exposure, extraction, implantation, and closure.
--- NOTE | 2020-11-19 11:21 | XR ---
EXAMINATION TYPE: XR knee limited LT DATE OF EXAM: 11/19/2020 CLINICAL HISTORY: Left knee pain and arthritis status post total knee replacement revision. TECHNIQUE: Portable AP and crosstable lateral views of the left knee are obtained immediately postop eratively. COMPARISON: Outside left knee x-ray October 02, 2020 FINDINGS: Metallic hardware from total left knee arthroplasty revision is seen and appears satisfact ory in alignment and position. There is evidence of recent surgery with diffuse subcutaneous gas and soft tissue swelling noted. IMPRESSION: METALLIC HARDWARE FROM TOTAL LEFT KNEE ARTHROPLASTY IS SATISFACTORY IN ALIGNMENT.
[2020-11-19] MEDS: SODIUM CHLORIDE 0.9% 1,000 ML IV SCH (12:52)
[2020-11-19 19:48] VITALS: RESP 18
[2020-11-19] MEDS ORDERED: SENNOSIDES-DOCUSATE SODIUM 1 EACH TAB PO SCH (21:00)
[2020-11-19] MEDS: HYDROcodone/APAP 7.5-325MG 1 EACH TAB PO PRN (22:53)
[2020-11-20] MEDS: SODIUM CHLORIDE 0.9% 1,000 ML IV SCH (03:37)
[2020-11-20] MEDS ORDERED: TRANEXAMIC ACID 1,000 MG in SODIUM CHLORIDE 0.9% 100 ML IVPB PRN (05:00)
[2020-11-20] MEDS: LACTATED RINGERS 1,000 ML IV SCH (05:34)
--- NOTE | 2020-11-20 07:03 | P.PN ---
Progress Note - Text Progress Note Date: 11/20/20 Postoperative day # 1 status post revision left total knee arthroplasty, and adductor canal catheter placed for postoperative analgesia, currently at ropivacaine 0.2% 8 mL per hour and continuous infusion, visual analogue scale is 1-2/10, patient using oral pain medication for breakthrough pain. Assessment and plan= Acute postoperative pain, adductor canal catheter for pain control, pain is well controlled we'll continue the same management.
[2020-11-20 07:31] VITALS: BP 132/78; PULSE 76; TEMP 97.6
[2020-11-20] MEDS: HYDROcodone/APAP 7.5-325MG 1 EACH TAB PO PRN (07:39)
[2020-11-20 08:51] LABS: Basophils % (A) 0 %; Eosinophils % (A) 0 %; HCT 33.9 % (34.0-46.0); Lymphocytes # (A) 2.4 k/uL (1.0-4.8); Lymphocytes % (A) 17 %; MCH 32.1 pg (25.0-35.0); MCHC 32.4 g/dL (31.0-37.0); MCV 99.3 fL (80.0-100.0); Mean Platelet Volume 8.5; Monocytes # (A) 0.6 k/uL (0-1.0); Monocytes % (A) 4 %; Neutrophils # (A) 10.8 k/uL (1.3-7.7); Neutrophils % (A) 77 %; Platelet Count 294 k/uL (150-450); RBC 3.41 m/uL (3.80-5.40); RDW 13.2 % (11.5-15.5)
[2020-11-20] MEDS ORDERED: RIVAROXABAN 10 MG TAB PO SCH (09:00)
--- NOTE | 2020-11-20 10:06 | P.CONS ---
History of Present Illness - Reason for Consult Consult date: 11/20/20 HTN Requesting physician: Darien Vincent - Chief Complaint left knee pain - History of Present Illness Patient is a 55-year-old female with a history of hypertension, GERD, and prior postop DVT on the left who presented for elective left total knee revision. She underwent surgery on 11/19 without any immediate postoperative complications. Patient seen and examined at bedside. She is having some left knee pain after working with therapy. She denies any chest pain, shortness breath, nausea, vomiting, lightheadedness, dizziness, or headache. Pertinent positives and negatives as discussed in HPI, a complete review of systems was performed and all other systems are negative. General: Nontoxic, no distress, appears at stated age Derm: warm, dry Head: atraumatic, normocephalic, symmetric Eyes: EOMI, no lid lag, anicteric sclera Mouth: no lip lesion, mucus membranes moist Cardiovascular: S1S2 reg, no murmur, positive posterior tibial pulse bilateral, Lungs: CTA bilateral, no rhonchi, no rales , no accessory muscle use Abdominal: soft, nontender to palpation, no guarding, no appreciable organomegaly Ext: no edema, no contractures Neuro: CN II-XI grossly intact, no focal neuro deficits Psych: Alert, oriented, appropriate affect 55-year-old female status post left total knee revision. History of postop DVT after prior left total knee -Currently on Xarelto -Recommend continuing this on discharge Hypertension -Blood pressure low normal -Continue to hold lisinopril, anticipate resuming on discharge home once patient is no longer requiring IV narcotics for pain control GERD -Not chronically on PPI -If patient should require aspirin therapy at discharge would recommend initiating PPI. Patient medically optimized for discharge at the discretion of orthopedic surgery. Thank you for allowing us to participate in the care of this pleasant patient. Do not hesitate to contact us with questions. Someone can be reached from the [facility] hospitalist group all hours of the day at [phone] or via [facility]. Past Medical History Past Medical History: Asthma, Deep Vein Thrombosis (DVT), GERD/Reflux, Hypertension, Osteoarthritis (OA) Additional Past Medical History / Comment(s): varicose veins,urinary freq and nighttime freq, DVT post Lt total knee, asthma as a child History of Any Multi-Drug Resistant Organisms: None Reported Past Surgical History: Joint Replacement, Orthopedic Surgery Additional Past Surgical History / Comment(s): arthroscopic augusta knees, augusta knee replacements, pain procedures, colonoscopy, left knee revision 11/19/20 Past Anesthesia/Blood Transfusion Reactions: No Reported Reaction Additional Past Anesthesia/Blood Transfusion Reaction / Comm: takes awhile to wake up, and woke up during last surgery,no hx blood transfusion Past Psychological History: Anxiety Smoking Status: Never smoker Past Alcohol Use History: Rare Past Drug Use History: None Reported - Past Family History Mother Family Medical History: No Reported History Sister(s) Family Medical History: Cancer Medications and Allergies Home Medications Medication Instructions Recorded Confirmed Type Multivitamins, Thera [Multivitamin 1 tab PO DAILY 01/27/18 11/13/20 History (formulary)] Ergocalciferol [Vitamin D2] 50,000 unit PO MO 02/04/18 11/13/20 History lisinopriL [Zestril] 30 mg PO DAILY 02/04/18 11/19/20 History Aspirin 81 mg PO DAILY 11/13/20 11/13/20 History Cholecalciferol (Vitamin D3) 125 mcg PO DAILY 11/13/20 11/19/20 History [Vitamin D3 (5000 Iu)] Ibuprofen [Motrin] 800 mg PO BID 11/13/20 11/13/20 History traMADol HCL [Ultram] 50 mg PO Q6HR PRN 11/13/20 11/19/20 History Allergies Allergy/AdvReac Type Severity Reaction Status Date / Time amoxicillin [From Augmentin] Allergy Rash/Hives Verified 11/19/20 06:58 clavulanic acid Allergy Rash/Hives Verified 11/19/20 06:58 [From Augmentin] Physical Exam Osteopathic Statement: *. No significant issues noted on an osteopathic structural exam other than those noted in the History and Physical/Consult. Vitals: Vital Signs Temp Pulse Resp BP Pulse Ox 11/20/20 07:31 97.6 F 76 18 132/78 100 11/20/20 01:01 97.9 F 88 117/73 96 11/19/20 19:15 78 18 11/19/20 19:11 97.4 F L 78 18 138/75 96 11/19/20 13:50 117/76 11/19/20 13:35 119/79 11/19/20 13:25 126/83 11/19/20 13:10 122/68 11/19/20 12:55 119/68 11/19/20 12:40 136/70 11/19/20 12:20 130/65 11/19/20 12:05 97.9 F 90 16 132/85 96 11/19/20 11:35 77 16 129/76 98 11/19/20 11:20 82 16 132/77 98 11/19/20 11:05 80 16 129/77 98 11/19/20 10:50 72 16 137/80 98 11/19/20 10:35 97.5 F L 98 16 123/85 98 Intake and Output 11/19/20 11/20/20 11/20/20 22:59 06:59 14:59 Other: Voiding Method Toilet # Voids 2 Results CBC & Chem 7: 11/20/20 07:24 Labs: Abnormal Lab Results - Last 24 Hours (Table) 11/20/20 Range/Units 07:24 WBC 14.0 H (3.8-10.6) k/uL RBC 3.41 L (3.80-5.40) m/uL Hgb 11.0 L (11.4-16.0) gm/dL Hct 33.9 L (34.0-46.0) % Neutrophils # 10.8 H (1.3-7.7) k/uL
[2020-11-20] MEDS: HYDROmorphone 0.5 MG/0.5 ML SYRINGE IVP PRN (10:12)
--- NOTE | 2020-11-20 11:02 | P.PN ---
Subjective Progress Note Date: 11/20/20 Principal diagnosis: Status post revision left total knee arthroplasty Patient was examined today at bedside, shortness comfortably in hospital bed. She did very well with physical therapy, she is able to do stairs with no difficulty. She is urinating with no difficulty. Her pain is controlled currently with medication. She denies any headaches, lightheadedness, chest pain or shortness of breath. Objective - Vital Signs Vital signs: Vital Signs Temp 97.6 F 11/20/20 07:31 Pulse 76 11/20/20 07:31 Resp 18 11/20/20 07:31 BP 132/78 11/20/20 07:31 Pulse Ox 100 11/20/20 07:31 Intake & Output 11/19/20 11/20/20 11/20/20 18:59 06:59 18:59 Intake Total 1300 Output Total 100 Balance 1200 Weight 82.1 kg Intake: IV 1300 Output: Estimated Blood Loss 100 Other: Voiding Method Toilet # Voids 2 2 - Exam Left lower extremity: Incision is clean, dry, and intact. The exofin fusion tape is in good condition. There is minimal soft tissue swelling and ecchymosis surrounding the medial and lateral aspects of the incision. Calf is soft, no tenderness with palpation. Plantar flexion, dorsiflexion, EHL, FHL are intact. Sensory exam to light touch throughout the extremity is intact, dorsal pedis pulses 2+. - Labs CBC & Chem 7: 11/20/20 07:24 Labs: Abnormal Lab Results - Last 24 Hours (Table) 11/20/20 Range/Units 07:24 WBC 14.0 H (3.8-10.6) k/uL RBC 3.41 L (3.80-5.40) m/uL Hgb 11.0 L (11.4-16.0) gm/dL Hct 33.9 L (34.0-46.0) % Neutrophils # 10.8 H (1.3-7.7) k/uL Assessment and Plan Assessment: Postoperative day #1 status post revision left total knee arthroplasty Plan: Pain control, plan for discharge home on [place] 7.5 mg/325 mg DVT prophylaxis, Xarelto 10 mg daily for 12 days Wound care instructions were discussed Icing and elevating techniques discussed Home physical therapy and nursing of discharge Medical recommendations Plan for discharge home today Time with Patient: Less than 30
--- NOTE | 2020-11-20 11:08 | P.DS ---
Providers Date of admission: 11/19/20 06:11 Expected date of discharge: 11/20/20 Attending physician: Darien Vincent Consults: 11/19/20 10:14 Consult Physician Routine Consulting Provider: Ember Walker Consult Reason/Comments: Medical Management Do you want consulting provider notified?: Yes Primary care physician: Isra Newby Hospital Course: Date of admission: 11/19/2020 Date of discharge: 11/20/2020 Admission diagnosis: Status post revision left total knee arthroplasty Discharge diagnosis: Same Attending physician: Dr. Vincent Surgical procedures: Revision left total knee arthroplasty Brief history: Patient is a 55-year-old female with a history of a previous left total knee arthroplasty. Patient had been evaluated in the outpatient setting due to pain, instability and possible loosening. Conservative measures were attempted, it was determined patient was revision left total knee arthroplasty. She was scheduled surgery for 11/19/[address] Vincent. Hospital course: Details of patient's surgery can be found in operative report. Patient tolerated the procedure well and was subsequently transported to orthopedic floor. Patient's orthopeidc and medical care was provided daily. Patient had daily laboratory tests performed for evaluation of overall blood counts. Patient had daily physical therapy to include strengthening range of motion as well as education with walker ambulation. Patient was treated with Xarelto for their postoperative DVT prophylaxis during their inpatient stay. Patient was noted to have a relatively uneventful postoperative course. Patient reported satisfactory pain control with oral pain medications by postoperative day 0. Patient showed satisfactory progress with physical therapy. Patient moved steadily through the program and had no difficulty meeting the goals by postoperative day 1. Given patient's otherwise satisfactory course and having met physical therapy goals, plan is to discharge patient home on postoperative day 1. Discharge condition/disposition: Patient will be discharged home in stable condition. Discharge medications: Instructions are given on resumption of patient's normal daily medications per primary care recommendation, in addition patient will be prescribed [place] 7.5 mg/325 mg, Colace 100 mg, Xarelto 10 mg. Discharge instructions: 1. Wound care and infection precautions, [keep incision dry and covered while showering], no lotions, creams, moisturizers. No soaking, tubs, pools, hottubs. Do not scrub over the incision. 2. Weight-bear as tolerated with walker / cane until follow-up. 3. Ice and elevate when necessary. Do not exceed 20 minutes per hour with ice pack. 4. Utilize compression sleeve until seen at first follow up appointment. 5. Visiting nursing care. 6. Home physical therapy 7. Pain meds and anticoagulants per prescription. 8. Pain medication has potential to cause constipation. Increase oral fluid and fiber intake. Contact primary care provider if you have not had a bowel movement within 48 hours after discharge 9. No anti-inflammatory medication until discussed at first post operative visit, this including Motrin, Aleve, Mobic, Diclofenac 10. Follow up in office at 2 weeks postop with Tashi Padilla PA-C/Donavan Powell 11. Follow up with your primary care doctor 7-10 days after discharge. 12. Contact [facility] with any questions, . Procedures: Revision left total knee arthroplasty Patient Condition at Discharge: Good Plan - Discharge Summary Discharge Rx Participant: Yes New Discharge Prescriptions: New Docusate [Colace] 100 mg PO DAILY #30 capsule HYDROcodone/APAP 7.5-325MG [[place] 7.5] 1 - 2 each PO Q6HR PRN #42 tab PRN Reason: Pain Rivaroxaban [Xarelto] 10 mg PO DAILY #12 tab Continue Multivitamins, Thera [Multivitamin (formulary)] 1 tab PO DAILY lisinopriL [Zestril] 30 mg PO DAILY Ergocalciferol [Vitamin D2 (DRISDOL)] 50,000 unit PO MO Cholecalciferol (Vitamin D3) [Vitamin D3 (5000 Iu)] 125 mcg PO DAILY Discontinued Ibuprofen [Motrin] 800 mg PO BID No Action traMADol HCL [Ultram] 50 mg PO Q6HR PRN PRN Reason: Pain Aspirin 81 mg PO DAILY Discharge Medication List Multivitamins, Thera [Multivitamin (formulary)] 1 tab PO DAILY 01/27/18 [History] Ergocalciferol [Vitamin D2 (DRISDOL)] 50,000 unit PO MO 02/04/18 [History] lisinopriL [Zestril] 30 mg PO DAILY 02/04/18 [History] Aspirin 81 mg PO DAILY 11/13/20 [History] Cholecalciferol (Vitamin D3) [Vitamin D3 (5000 Iu)] 125 mcg PO DAILY 11/13/20 [History] traMADol HCL [Ultram] 50 mg PO Q6HR PRN 11/13/20 [History] Docusate [Colace] 100 mg PO DAILY #30 capsule 11/20/20 [Rx] HYDROcodone/APAP 7.5-325MG [[place] 7.5] 1 - 2 each PO Q6HR PRN #42 tab 11/20/20 [Rx] Rivaroxaban [Xarelto] 10 mg PO DAILY #12 tab 11/20/20 [Rx] Follow up Appointment(s)/Referral(s): [facility] [NON-STAFF] - (*Please call once home to arrange delivery of Continuous Passive Motion (CPM) machine. ) Isra Newby MD [Primary Care Provider] - 2 Weeks [facility], [NON-STAFF] - ([facility] will call you to set up your first appointment. ) Anam Padilla, PAC [PHYSICIAN AGRICULTURAL SERVICE WORKER] - 12/04/20 1:30 pm Patient Instructions/Handouts: *Surgery [facility] - On-Q Pain Pump Discharge Instructions, How to Use an Incentive Spirometer (DC), Precautions after Total Joint Replacement Surgery (DC), Joint Replacement Surgery (DC) Discharge Disposition: HOME WITH HOME HEALTH SERVICES
[2020-11-20 15:15] LABS: Basophils # (A) 0.02 X 10*3/uL (0.00-0.10); Basophils % (A) 0.1 %; Eosinophils # (A) 0 X 10*3/uL (0.04-0.35); Eosinophils % (A) 0 %; HCT 32.8 % (37.2-46.3); HGB 10.3 g/dL (12.0-15.0); Lymphocytes % (A) 18.2 %; MCH 31.5 pg (27.0-32.0); MCHC 31.4 g/dL (32.0-37.0); MCV 100.3 fL (80.0-97.0); Mean Platelet Volume 11.7 fL (9.5-12.2); Monocytes # (A) 0.81 X 10*3/uL (0.20-1.00); Monocytes % (A) 5.7 %; Neutrophils # (A) 10.77 X 10*3/uL (1.80-7.70); Neutrophils % (A) 75.5 %; Platelet Count 287 X 10*3/uL (140-440); RBC 3.27 X 10*6/uL (4.10-5.20); RDW 13.8 % (11.5-14.5); WBC 14.27 X 10*3/uL (4.50-10.00)
== END 2020-11-20 13:52 | disposition home health service (06) | DRG 468 ==
LOC: 2ORMAIN 06:11 → 4SSUR 11:44
PROVIDERS: ADMIT Orthopaedic Surgery; ATTEND Orthopaedic Surgery
PROC: 0SPD0JZ Removal of Synthetic Substitute from Left Knee Joint, Open Approach (ICD-10-PCS; 2020-11-19)
PROC: 0SRD0J9 Replacement of Left Knee Joint with Synthetic Substitute, Cemented, Open Approach (ICD-10-PCS; principal; 2020-11-19 07:45)
DX: T84.033A Mechanical loosening of internal left knee prosthetic joint, initial encounter (principal); Y83.1 Surgical operation with implant of artificial internal device as the cause of abnormal reaction of the patient, or of later complication, without mention of misadventure at the time of the procedure; Z20.822 Contact with and (suspected) exposure to COVID-19; K21.9 Gastro-esophageal reflux disease without esophagitis; I10 Essential (primary) hypertension; J45.909 Unspecified asthma, uncomplicated; M19.90 Unspecified osteoarthritis, unspecified site; F41.9 Anxiety disorder, unspecified; Z96.653 Presence of artificial knee joint, bilateral; Z88.1 Allergy status to other antibiotic agents; Z79.82 Long term (current) use of aspirin; Z79.891 Long term (current) use of opiate analgesic; Z79.899 Other long term (current) drug therapy; Z86.718 Personal history of other venous thrombosis and embolism; Z80.9 Family history of malignant neoplasm, unspecified; T84.84XA Pain due to internal orthopedic prosthetic devices, implants and grafts, initial encounter
CPT/HCPCS: 64448; 64999; 76942; 81025; 85025; 85610; 87635; 88305; 88331

== ENCOUNTER 2020-11-23 19:03 | Inpatient (IN) | payer BC, MEDICARE ==
[2020-11-23] MEDS ORDERED: MORPHINE SULFATE 4 MG/ML SYRINGE IVP STA (21:20)
[2020-11-23] MEDS: SODIUM CHLORIDE 0.9% 500 ML 500 ML IV SCH ×2 (22:03→22:30)
[2020-11-23 22:18] LABS: Basophils % (A) 0 %; Eosinophils # (A) 0.5 k/uL (0-0.7); Eosinophils % (A) 4 %; HCT 34.1 % (34.0-46.0); HGB 11.2 gm/dL (11.4-16.0); Lymphocytes # (A) 2.4 k/uL (1.0-4.8); Lymphocytes % (A) 21 %; MCH 31.4 pg (25.0-35.0); MCHC 32.7 g/dL (31.0-37.0); MCV 96.1 fL (80.0-100.0); Monocytes # (A) 0.5 k/uL (0-1.0); Monocytes % (A) 4 %; Neutrophils % (A) 70 %; Platelet Count 331 k/uL (150-450); RBC 3.55 m/uL (3.80-5.40); WBC 11.4 k/uL (3.8-10.6)
[2020-11-23 22:34] LABS: INR 0.9 (<1.2); Prothrombin Time 9.5 sec (9.0-12.0)
--- NOTE | 2020-11-23 22:38 | US ---
EXAMINATION TYPE: US venous doppler duplex LE LT DATE OF EXAM: 11/23/2020 10:29 PM COMPARISON: US 2012 CLINICAL HISTORY: Left leg swelling, calf pain, recent surgery. Left knee surgery 4 days ago, left le g pain and swelling, patient on blood thinners. SIDE PERFORMED: Left TECHNIQUE: The lower extremity deep venous system is examined utilizing real time linear array sonog yarelis with graded compression, doppler sonography and color-flow sonography. VESSELS IMAGED: Common Femoral Vein Deep Femoral Vein Greater Saphenous Vein * Femoral Vein Popliteal Vein Small Saphenous Vein * Proximal Calf Veins (* superficial vessels) Left Leg: Appears negative for DVT IMPRESSION: No sign of deep vein thrombosis in the left leg.
[2020-11-23 22:41] LABS: ALT 17 U/L (4-34); AST 20 U/L (14-36); African American GFR (CKD) >90 (>60 ml/min/1.73 sqM); Albumin 3.5 g/dL (3.5-5.0); Alkaline Phosphatase 76 U/L (38-126); Anion Gap 6 mmol/L; Blood Urea Nitrogen 18 mg/dL (7-17); Calcium 9.1 mg/dL (8.4-10.2); Carbon Dioxide 27 mmol/L (22-30); Chloride 102 mmol/L (98-107); Glucose 110 mg/dL (74-99); Non-African American GFR(CKD) >90 (>60 ml/min/1.73 sqM); Potassium 4.3 mmol/L (3.5-5.1); Sodium 135 mmol/L (137-145); Total Bilirubin 0.3 mg/dL (0.2-1.3); Total Protein 6.1 g/dL (6.3-8.2)
[2020-11-23] MEDS ORDERED: ONDANSETRON 4 MG/2 ML VIAL IVP PRN (23:31)
[2020-11-23] MEDS ORDERED: NALOXONE 0.4 MG/ML 1 ML VIAL IV PRN (23:31)
--- NOTE | 2020-11-23 23:35 | ED ---
General Adult HPI - General Chief complaint: Recheck/Abnormal Lab/Rx Stated complaint: post op problems Time Seen by Provider: 11/23/20 21:11 Source: patient, family Mode of arrival: ambulatory Limitations: no limitations - History of Present Illness Initial comments: 55-year-old female patient who is postop day #5 after revision of left total knee arthroplasty with Dr. Vincent, presents to the emergency department today for evaluation of swelling, pain, blistering to left anterior knee. Patient states over the last 24 hours she has noticed development of blisters, redness, and swelling to the knee. States she is having pain in her left calf. States that the blisters are draining bright yellow fluid. Denies any fever or chills. Has had nasal surgery the past no similar symptoms. Denies any numbness or tingling in the foot. Denies any injury to the knee. Patient denies any recent rash, cough, shortness of breath, chest pain, abdominal pain, nausea, vomiting, diarrhea, constipation, back pain, dizziness, weakness, hematuria, dysuria, u rinary urgency, urinary frequency, headache, visual changes, or any other complaints. - Related Data Home Medications Medication Instructions Recorded Confirmed Multivitamins, Thera [Multivitamin 1 tab PO DAILY 01/27/18 11/13/20 (formulary)] Ergocalciferol [Vitamin D2 50,000 unit PO MO 02/04/18 11/13/20 (DRISDOL)] lisinopriL [Zestril] 30 mg PO DAILY 02/04/18 11/19/20 Aspirin 81 mg PO DAILY 11/13/20 11/13/20 Cholecalciferol (Vitamin D3) 125 mcg PO DAILY 11/13/20 11/19/20 [Vitamin D3 (5000 Iu)] traMADol HCL [Ultram] 50 mg PO Q6HR PRN 11/13/20 11/19/20 Previous Rx's Medication Instructions Recorded Docusate [Colace] 100 mg PO DAILY #30 capsule 11/20/20 HYDROcodone/APAP 7.5-325MG [[place] 1 - 2 each PO Q6HR PRN #42 tab 11/20/20 7.5] Rivaroxaban [Xarelto] 10 mg PO DAILY #12 tab 11/20/20 Allergies Allergy/AdvReac Type Severity Reaction Status Date / Time amoxicillin [From Augmentin] Allergy Rash/Hives Verified 11/23/20 20:39 clavulanic acid Allergy Rash/Hives Verified 11/23/20 20:39 [From Augmentin] Review of Systems ROS Statement: Those systems with pertinent positive or pertinent negative responses have been documented in the HPI. ROS Other: All systems not noted in ROS Statement are negative. Past Medical History Past Medical History: Asthma, Deep Vein Thrombosis (DVT), GERD/Reflux, Hypertension, Osteoarthritis (OA) Additional Past Medical History / Comment(s): varicose veins,urinary freq and nighttime freq, DVT post Lt total knee, asthma as a child History of Any Multi-Drug Resistant Organisms: None Reported Past Surgical History: Joint Replacement, Orthopedic Surgery Additional Past Surgical History / Comment(s): arthroscopic augusta knees, augusta knee replacements, pain procedures, colonoscopy, left knee revision 11/19/20 Past Anesthesia/Blood Transfusion Reactions: No Reported Reaction Additional Past Anesthesia/Blood Transfusion Reaction / Comment(s): takes awhile to wake up, and woke up during last surgery,no hx blood transfusion Past Psychological History: Anxiety Smoking Status: Never smoker Past Alcohol Use History: Rare Past Drug Use History: None Reported - Past Family History Mother Family Medical History: No Reported History Sister(s) Family Medical History: Cancer General Exam Limitations: no limitations General appearance: alert, in no apparent distress, other (Physical well- developed, well-nourished adult female patient in no acute distress. Vital signs upon presentation are temperature 98.2F, pulse 140, respirations 20, blood pressure 116/80, pulse ox 97% on room air.) ENT exam: Present: normal exam, normal oropharynx, mucous membranes moist Respiratory exam: Present: normal lung sounds bilaterally. Absent: respiratory distress, wheezes, rales, rhonchi, stridor Cardiovascular Exam: Present: regular rate, normal rhythm, normal heart sounds. Absent: systolic murmur, diastolic murmur, rubs, gallop, clicks GI/Abdominal exam: Present: soft, normal bowel sounds. Absent: distended, tenderness, guarding, rebound, rigid Extremities exam: Present: full ROM, normal capillary refill, other (There is left medial knee incision that is well approximated with tape. Patient has overlying erythema, large vesicles, draining clear yellow fluid. Left leg is generally edematous, no pitting. Pedal and posttibial pulses 2+.). Absent: normal inspection, tenderness, pedal edema, joint swelling, calf tenderness Neurological exam: Present: alert, oriented X3, CN II-XII intact Psychiatric exam: Present: normal affect, normal mood Skin exam: Present: warm, dry, intact, normal color. Absent: rash Course Vital Signs 11/23/20 11/23/20 11/23/20 20:36 22:10 23:26 Temperature 98.2 F 98.7 F Pulse Rate 140 H 85 89 Respiratory 20 18 18 Rate Blood Pressure 116/80 133/88 124/74 O2 Sat by Pulse 97 100 98 Oximetry Medical Decision Making - Medical Decision Making 55-year-old female patient presented to the emergency department today for evaluation of swelling, redness, blistering over the left knee. Physical examination did reveal midline incision that is well approximated with tape. She has overlying erythema, swelling, and large vesicles draining clear yellow fluid. Knee is hot to touch. Leg is generally swollen, no pitting edema. She did have temperature 99.0 during my exam. Ultrasound was negative for DVT. Labs reviewed and did reveal mildly elevated white blood cell count. I did discuss the case with Dr. Vincent her surgeon, he recommends admission with IV antibiotics. We started kefzol. Did discuss findings, results, plan with the patient, she is agreeable. Case discussed with my attending Dr. Trejo. - Lab Data Result diagrams: 11/23/20 22:03 11/23/20 22:03 Lab Results 11/23/20 11/23/20 11/23/20 Range/Units 22:03 22:03 22:03 WBC 11.4 H (3.8-10.6) k/uL RBC 3.55 L (3.80-5.40) m/uL Hgb 11.2 L (11.4-16.0) gm/dL Hct 34.1 (34.0-46.0) % MCV 96.1 (80.0-100.0) fL MCH 31.4 (25.0-35.0) pg MCHC 32.7 (31.0-37.0) g/dL RDW 13.0 (11.5-15.5) % Plt Count 331 (150-450) k/uL MPV 8.0 Neutrophils % 70 % Lymphocytes % 21 % Monocytes % 4 % Eosinophils % 4 % Basophils % 0 % Neutrophils # 8.0 H (1.3-7.7) k/uL Lymphocytes # 2.4 (1.0-4.8) k/uL Monocytes # 0.5 (0-1.0) k/uL Eosinophils # 0.5 (0-0.7) k/uL Basophils # 0.0 (0-0.2) k/uL PT 9.5 (9.0-12.0) sec INR 0.9 (<1.2) APTT 23.0 (22.0-30.0) sec Sodium 135 L (137-145) mmol/L Potassium 4.3 (3.5-5.1) mmol/L Chloride 102 (98-107) mmol/L Carbon Dioxide 27 (22-30) mmol/L Anion Gap 6 mmol/L BUN 18 H (7-17) mg/dL Creatinine 0.63 (0.52-1.04) mg/dL Est GFR (CKD-EPI)AfAm >90 (>60 ml/min/1.73 sqM) Est GFR (CKD-EPI)NonAf >90 (>60 ml/min/1.73 sqM) Glucose 110 H (74-99) mg/dL Plasma Lactic Acid Kiel (0.7-2.0) mmol/L Calcium 9.1 (8.4-10.2) mg/dL Total Bilirubin 0.3 (0.2-1.3) mg/dL AST 20 (14-36) U/L ALT 17 (4-34) U/L Alkaline Phosphatase 76 (38-126) U/L Total Protein 6.1 L (6.3-8.2) g/dL Albumin 3.5 (3.5-5.0) g/dL 11/23/20 Range/Units 22:03 WBC (3.8-10.6) k/uL RBC (3.80-5.40) m/uL Hgb (11.4-16.0) gm/dL Hct (34.0-46.0) % MCV (80.0-100.0) fL MCH (25.0-35.0) pg MCHC (31.0-37.0) g/dL RDW (11.5-15.5) % Plt Count (150-450) k/uL MPV Neutrophils % % Lymphocytes % % Monocytes % % Eosinophils % % Basophils % % Neutrophils # (1.3-7.7) k/uL Lymphocytes # (1.0-4.8) k/uL Monocytes # (0-1.0) k/uL Eosinophils # (0-0.7) k/uL Basophils # (0-0.2) k/uL PT (9.0-12.0) sec INR (<1.2) APTT (22.0-30.0) sec Sodium (137-145) mmol/L Potassium (3.5-5.1) mmol/L Chloride (98-107) mmol/L Carbon Dioxide (22-30) mmol/L Anion Gap mmol/L BUN (7-17) mg/dL Creatinine (0.52-1.04) mg/dL Est GFR (CKD-EPI)AfAm (>60 ml/min/1.73 sqM) Est GFR (CKD-EPI)NonAf (>60 ml/min/1.73 sqM) Glucose (74-99) mg/dL Plasma Lactic Acid Kiel 1.1 (0.7-2.0) mmol/L Calcium (8.4-10.2) mg/dL Total Bilirubin (0.2-1.3) mg/dL AST (14-36) U/L ALT (4-34) U/L Alkaline Phosphatase (38-126) U/L Total Protein (6.3-8.2) g/dL Albumin (3.5-5.0) g/dL - Radiology Data Radiology results: report reviewed Negative for DVT to the left leg Disposition Clinical Impression: Dermatitis, Cellulitis of left knee Disposition: ADMITTED IP TO THIS [facility] Condition: Serious Decision to Admit Reason: Admit from EC Decision Date: 11/23/20 Decision Time: 23:35
[2020-11-24] MEDS: SODIUM CHLORIDE 0.9% 1,000 ML IV SCH ×2 (00:03→23:25)
[2020-11-24] MEDS: MORPHINE SULFATE 4 MG/ML SYRINGE IV PRN ×3 (08:05→18:41)
--- NOTE | 2020-11-24 09:32 | P.HPOR ---
History of Present Illness H&P Date: 11/24/20 Chief Complaint: Left leg swelling/blistering The patient's a 55-year-old female who underwent revision left total knee arthroplasty earlier this week presents with a 1 day history of significant blistering around her left knee. She notes she's been putting tape in that are a. She denies any fevers or chills. She notes the blisters have been draining. She's been ambulating with a walker. Review of Systems Constitutional: Reports as per HPI Allergic/Immunologic: Reports as per HPI Past Medical History Past Medical History: Asthma, Deep Vein Thrombosis (DVT), GERD/Reflux, Hypertension, Osteoarthritis (OA) Additional Past Medical History / Comment(s): varicose veins,urinary freq and nighttime freq, DVT post Lt total knee, asthma as a child History of Any Multi-Drug Resistant Organisms: None Reported Past Surgical History: Joint Replacement, Orthopedic Surgery Additional Past Surgical History / Comment(s): arthroscopic augusta knees, augusta knee replacements, pain procedures, colonoscopy, left knee revision 11/19/20 Past Anesthesia/Blood Transfusion Reactions: No Reported Reaction Additional Past Anesthesia/Blood Transfusion Reaction / Comment(s): takes awhile to wake up, and woke up during last surgery,no hx blood transfusion Past Psychological History: Anxiety Smoking Status: Never smoker Past Alcohol Use History: Rare Past Drug Use History: None Reported - Past Family History Mother Family Medical History: No Reported History Sister(s) Family Medical History: Cancer Medications and Allergies Home Medications Medication Instructions Recorded Confirmed Type Ergocalciferol [Vitamin D2 50,000 unit PO WE 02/04/18 11/24/20 History (DRISDOL)] Cholecalciferol (Vitamin D3) 125 mcg PO DAILY 11/13/20 11/24/20 History [Vitamin D3 (5000 Iu)] Docusate [Colace] 100 mg PO DAILY #30 capsule 11/20/20 11/24/20 Rx Rivaroxaban [Xarelto] 10 mg PO DAILY #12 tab 11/20/20 11/24/20 Rx HYDROcodone/APAP 7.5-325MG [[place]gil[place] 1 - 2 tab PO Q6HR PRN 11/24/20 11/24/20 Hist ory 7.5] lisinopriL 30 mg PO DAILY 11/24/20 11/24/20 History Allergies Allergy/AdvReac Type Severity Reaction Status Date / Time amoxicillin [From Augmentin] Allergy Rash/Hives Verified 11/24/20 08:57 clavulanic acid Allergy Rash/Hives Verified 11/24/20 08:57 [From Augmentin] Physical Examination - Knee left Appearance: previous incision (Significant surrounding clear blisters, no purulence) Tenderness with palpation: none ROM: extension: -10 degrees ROM: flexion: 80 degrees Strength: extension: 5/5 Strength: flexion: 5/5 Results Painless passive motion left hip No palpable groin adenopathy Left knee incision intact with peripheral clear blisters Mild erythema left knee incision Homans negative left lower extremity Distal neurovascular exam intact left lower extremity - Labs Labs: Abnormal Lab Results - Last 24 Hours (Table) 11/23/20 11/23/20 Range/Units 22:03 22:03 WBC 11.4 H (3.8-10.6) k/uL RBC 3.55 L (3.80-5.40) m/uL Hgb 11.2 L (11.4-16.0) gm/dL Neutrophils # 8.0 H (1.3-7.7) k/uL Sodium 135 L (137-145) mmol/L BUN 18 H (7-17) mg/dL Glucose 110 H (74-99) mg/dL Total Protein 6.1 L (6.3-8.2) g/dL H & H 11/23/20 Range/Units 22:03 Hgb 11.2 L (11.4-16.0) gm/dL Hct 34.1 (34.0-46.0) % Coagulation 11/23/20 Range/Units 22:03 INR 0.9 (<1.2) Result Diagrams: 11/23/20 22:03 11/23/20 22:03 Assessment and Plan Assessment: Status post left revision total knee arthroplasty Probable contact dermatitis left knee Cellulitis left knee Plan: I talked with the patient regarding her condition along with treatment options. A new dressing is placed at bedside. We will start IV Decadron to help with the inflammatory process. We will prophylactically put her on IV Ancef. We will monitor her clinically and consider surgical debridement if needed. Time with Patient: Greater than 30
[2020-11-24] MEDS: APIXABAN 2.5 MG TABLET PO SCH ×2 (09:44→20:26)
[2020-11-24] MEDS: DEXAMETHASONE SOD PHOSPHATE 4 MG/ML 1 ML VIAL IV SCH ×3 (12:36→23:25)
[2020-11-25] MEDS: MORPHINE SULFATE 4 MG/ML SYRINGE IV PRN ×2 (03:29→10:35)
[2020-11-25] MEDS: DEXAMETHASONE SOD PHOSPHATE 4 MG/ML 1 ML VIAL IV SCH ×3 (06:00→18:12)
[2020-11-25] MEDS: APIXABAN 2.5 MG TABLET PO SCH ×2 (08:17→20:41)
[2020-11-25 08:30] LABS: Basophils % (A) 0 %; Eosinophils # (A) 0.1 k/uL (0-0.7); Eosinophils % (A) 1 %; HCT 34.2 % (34.0-46.0); HGB 10.9 gm/dL (11.4-16.0); Lymphocytes # (A) 1.4 k/uL (1.0-4.8); Lymphocytes % (A) 12 %; MCH 30.8 pg (25.0-35.0); MCHC 31.9 g/dL (31.0-37.0); MCV 96.6 fL (80.0-100.0); Mean Platelet Volume 7.7; Monocytes # (A) 0.2 k/uL (0-1.0); Monocytes % (A) 2 %; Neutrophils # (A) 10.3 k/uL (1.3-7.7); Neutrophils % (A) 85 %; Platelet Count 367 k/uL (150-450); RBC 3.54 m/uL (3.80-5.40); RDW 13.4 % (11.5-15.5); WBC 12.1 k/uL (3.8-10.6)
--- NOTE | 2020-11-25 13:07 | P.PN ---
Subjective Progress Note Date: 11/25/20 Principal diagnosis: Status post left total knee arthroplasty with contact dermatitis/cellulitis Patient notes some improvement in terms of pain. Objective - Vital Signs Vital signs: Vital Signs Temp 97.6 F 11/25/20 08:25 Pulse 108 H 11/25/20 08:25 Resp 18 11/25/20 08:25 BP 136/88 11/25/20 08:25 Pulse Ox 96 11/25/20 08:25 Intake & Output 11/24/20 11/25/20 11/25/20 18:59 06:59 18:59 Intake Total 240 Balance 240 Weight 85.275 kg Intake: Oral 240 Other: Voiding Method Toilet # Voids 2 1 1 - Exam Left knee incision is intact, surrounding erythema with some blistering Homans negative left lower extremity Distal neurovascular exam intact left lower extremity - Labs CBC & Chem 7: 11/25/20 07:55 11/23/20 22:03 Labs: Abnormal Lab Results - Last 24 Hours (Table) 11/25/20 Range/Units 07:55 WBC 12.1 H (3.8-10.6) k/uL RBC 3.54 L (3.80-5.40) m/uL Hgb 10.9 L (11.4-16.0) gm/dL Neutrophils # 10.3 H (1.3-7.7) k/uL Microbiology - Last 24 Hours (Table) 11/23/20 22:04 Blood Culture - Preliminary Blood No Growth after 24 hours 11/23/20 22:00 Blood Culture - Preliminary Blood No Growth after 24 hours Assessment and Plan Assessment: Status post left total knee arthroplasty with severe contact dermatitis/cellulitis Plan: Clinically she seems to be improving. We will continue the IV Decadron. We will have her continue therapy weightbearing as tolerated with a walker. Potentially we will discharge her tomorrow with oral steroids in addition to prophylactic oral antibiotics.
[2020-11-25] MEDS: SODIUM CHLORIDE 0.9% 1,000 ML IV SCH ×2 (15:23→22:06)
[2020-11-25] MEDS: HYDROcodone/APAP 7.5-325MG 1 EACH TAB PO PRN (22:06)
[2020-11-26] MEDS: DEXAMETHASONE SOD PHOSPHATE 4 MG/ML 1 ML VIAL IV SCH ×4 (00:26→17:53)
[2020-11-26] MEDS: HYDROcodone/APAP 7.5-325MG 1 EACH TAB PO PRN ×5 (02:08→22:14)
[2020-11-26] MEDS: APIXABAN 2.5 MG TABLET PO SCH ×2 (08:25→20:08)
--- NOTE | 2020-11-26 13:39 | P.PN ---
Subjective Progress Note Date: 11/26/20 Principal diagnosis: Left knee contact dermatitis status post total knee arthroplasty Patient notes improvement. She's been ambulating with a walker. Objective - Vital Signs Vital signs: Vital Signs Temp 97.4 F L 11/26/20 08:50 Pulse 63 11/26/20 08:50 Resp 16 11/26/20 08:50 BP 140/82 11/26/20 08:50 Pulse Ox 99 11/26/20 08:50 Intake & Output 11/25/20 11/26/20 11/26/20 18:59 06:59 18:59 Intake Total 1840 400 Balance 1840 400 Intake: Intake, IV Titration 600 Amount Sodium Chloride 0.9% 1, 500 000 ml @ 50 mls/hr IV . Q20H SARAHI Rx#:[id number] ceFAZolin 1,000 mg In 100 Sodium Chloride 0.9% 50 ml @ 100 mls/hr IVPB Q8HR SARAHI Rx#:[id number] Oral 1240 400 Other: Voiding Method Toilet # Voids 2 1 # Bowel Movements 1 - Exam Left knee incision intact, medial lateral blistering No purulence or fluctuance Homans negative left lower extremity Neurovascular exam intact left lower extremity - Constitutional General appearance: Present: no acute distress - Labs CBC & Chem 7: 11/25/20 07:55 11/23/20 22:03 Labs: Microbiology - Last 24 Hours (Table) 11/23/20 22:00 Blood Culture - Preliminary Blood No Growth after 48 hours 11/23/20 22:04 Blood Culture - Preliminary Blood No Growth after 48 hours Assessment and Plan Assessment: Status post left total knee arthroplasty contact dermatitis/cellulitis Plan: Clinically she is improving. We will continue with IV Decadron along with IV Ancef prophylactically. We will start Silvadene once daily. Continue ambulation. Anticipate discharge tomorrow. Time with Patient: Less than 30
[2020-11-26] MEDS: lisinopriL 10 MG TAB PO SCH (16:59)
[2020-11-26] MEDS: SODIUM CHLORIDE 0.9% 1,000 ML IV SCH (19:50)
[2020-11-27] MEDS: DEXAMETHASONE SOD PHOSPHATE 4 MG/ML 1 ML VIAL IV SCH ×3 (00:19→12:19)
[2020-11-27] MEDS: HYDROcodone/APAP 7.5-325MG 1 EACH TAB PO PRN ×3 (04:45→12:21)
[2020-11-27] MEDS: APIXABAN 2.5 MG TABLET PO SCH (08:02)
[2020-11-27] MEDS: lisinopriL 10 MG TAB PO SCH (08:28)
[2020-11-27 09:00] VITALS: RESP 18
--- NOTE | 2020-11-27 10:10 | P.PN ---
Subjective Progress Note Date: 11/27/20 Principal diagnosis: Contact dermatitis left knee, history of left total knee arthroplasty Patient was evaluated today at bedside, she is resting comfortably. Patient states that the knee is improving, her pain is well-controlled. Silvadene cream was applied by nursing staff yesterday. Objective - Vital Signs Vital signs: Vital Signs Temp 97.6 F 11/27/20 08:15 Pulse 89 11/27/20 08:15 Resp 18 11/27/20 08:15 BP 151/94 11/27/20 08:15 Pulse Ox 97 11/27/20 08:15 Intake & Output 11/26/20 11/27/20 11/27/20 18:59 06:59 18:59 Intake Total 400 Balance 400 Intake: Oral 400 Other: Voiding Method Toilet # Voids 1 # Bowel Movements 1 - Exam Left lower extremity: Exofin tape is in good position and condition. There is obvious erythema and skin blistering noted on the periphery of the incision on both the medial and lateral. No effusion present on the knee. Patient is flexing her knee to at least 90, she lacks about 10 of extension. No excessive pain is noted with active or passive motion. Calf is soft, no tenderness with palpation. Plantar flexion, dorsiflexion, EHL, FHL are intact. Soft, no tenderness with palpation, dorsalis pedis pulses 2+. Sensory exam to light touch is intact throughout the extremity - Labs CBC & Chem 7: 11/25/20 07:55 11/23/20 22:03 Labs: Microbiology - Last 24 Hours (Table) 11/23/20 22:04 Blood Culture - Preliminary Blood No Growth after 72 hours 11/23/20 22:00 Blood Culture - Preliminary Blood No Growth after 72 hours Assessment and Plan Assessment: Left knee contact dermatitis History of recent left total knee arthroplasty Plan: Pain control, pain medication will be refilled today in hospital for home Home care instructions were discussed patient, Silvadene cream was prescribed, she will apply this once a day Wound care instructions were discussed GI and DVT prophylaxis, she will resume her Eliquis after discharge Home physical therapy and nursing after discharge Other medical asst and recommendations Discharge planning: Patient stable for discharge to home today Time with Patient: Less than 30
--- NOTE | 2020-11-27 10:19 | P.DS ---
Providers Date of admission: 11/23/20 23:29 Expected date of discharge: 11/27/20 Attending physician: Darien Vincent Primary care physician: Isra Newby [facility] Course: Date of admission: 11/23/2020 Date of discharge: 11/27/2020 Admission diagnosis: Contact dermatitis left knee, history of left total knee arthroplasty Discharge diagnosis: Same Attending physician: Dr. Vincent Surgical procedures: None Brief history: Patient is a [id number] female with a history of with a recent left total knee arthroplasty. Patient developed a rash over her left knee that became significantly worse. She presented to [facility] for further evaluation. She was then admitted to the pediatric floor under orthopedic care for further evaluation. It was determined she had a severe contact dermatitis that was likely due to the surgical glue/tape system that was used. She was started on IV antibiotics prophylactically and also IV steroids. Hospital course: Patient's orthopeidc and medical care was provided daily. Patient had daily laboratory tests performed for evaluation of overall blood counts. Patient had daily physical therapy to include strengthening range of motion as well as education with walker ambulation. Patient was treated with Eliquis for their postoperative DVT prophylaxis during their inpatient stay. Patient was noted to have a relatively uneventful postoperative course. patient was treated with IV antibiotics for prophylaxis, she was also treated with IV steroids. Utilize Silvadene cream over the affected area. Discharge condition/disposition: Patient will be discharged home in stable co ndition. Discharge medications: Instructions are given on resumption of patient's normal daily medications per primary care recommendation, in addition patient will be prescribed Silvadene cream. Discharge instructions: 1. Wound care and infection precautions, keep incision dry and covered while showering, no lotions, creams, moisturizers. No soaking, tubs, pools, hottubs. Do not scrub over the incision. 2. Weight-bear as tolerated with walker / cane until follow-up. 3. Ice and elevate when necessary. Do not exceed 20 minutes per hour with ice pack. 4. Utilize compression sleeve until seen at first follow up appointment. 5. Visiting nursing care. 6. Home physical therapy including home CPM. 7. Pain meds and anticoagulants per prescription. 8. Pain medication has potential to cause constipation. Increase oral fluid and fiber intake. Contact primary care provider if you have not had a bowel movement within 48 hours after discharge 9. No anti-inflammatory medication until discussed at first post operative visit, this including Motrin, Aleve, Mobic, Diclofenac 10. Follow up in office at 2 weeks postop with Tashi Padilla PA-C/Donavan Powell 11. Follow up with your primary care doctor 7-10 days after discharge. 12. Contact [facility] with any questions, . Patient Condition at Discharge: Good Plan - Discharge Summary New Discharge Prescriptions: New SILVER sulfADIAZINE Cream [Silvadene 1% Cream] 1 applic TOPICAL DAILY #40 gram No Action Ergocalciferol [Vitamin D2 (DRISDOL)] 50,000 unit PO WE Cholecalciferol (Vitamin D3) [Vitamin D3 (5000 Iu)] 125 mcg PO DAILY Docusate [Colace] 100 mg PO DAILY #30 capsule HYDROcodone/APAP 7.5-325MG [[place] 7.5] 1 - 2 tab PO Q6HR PRN PRN Reason: Pain lisinopriL 30 mg PO DAILY Rivaroxaban [Xarelto] 10 mg PO DAILY #12 tab Discharge Medication List Ergocalciferol [Vitamin D2 (DRISDOL)] 50,000 unit PO WE 02/04/18 [History] Cholecalciferol (Vitamin D3) [Vitamin D3 (5000 Iu)] 125 mcg PO DAILY 11/13/20 [History] Docusate [Colace] 100 mg PO DAILY #30 capsule 11/20/20 [Rx] Rivaroxaban [Xarelto] 10 mg PO DAILY #12 tab 11/20/20 [Rx] HYDROcodone/APAP 7.5-325MG [[place] 7.5] 1 - 2 tab PO Q6HR PRN 11/24/20 [History] lisinopriL 30 mg PO DAILY 11/24/20 [History] SILVER sulfADIAZINE Cream [Silvadene 1% Cream] 1 applic TOPICAL DAILY #40 gram 11/27/20 [Rx] Follow up Appointment(s)/Referral(s): Isra Newby MD [Primary Care Provider] - 1-2 days [facility], [NON-STAFF] - Darien Vincent MD [STAFF PHYSICIAN] - 1 Week Activity/Diet/Wound Care/Special Instructions: Discharge instructions: 1. Resume home medications after discharge 2. Apply Silvadene cream once a day 3. Please keep incision covered and dry while showering 4. Continue with home exercises and home Pt 5. Follow up in [address] Vincent Discharge Disposition: HOME WITH HOME HEALTH SERVICES
[2020-11-27 14:32] VITALS: BP 144/92; PULSE 85; TEMP 97.8
--- NOTE | 2020-12-24 12:24 | CDI ---
Documentation Clarification Form Date: 12/24/20 From: Zenia Heller Admit Date: 11/23/2020 11:29:00 PM Patient Name: Trudy Magallon Visit Number: [id number] Discharge Date: 11/27/2020 04:50:00 PM ATTENTION: The Clinical Documentation Specialists (CDI) and [facility] Coding Staff appreciate your assistance in clarifying documentation. Please respond to the clarification below the line at the bottom and electronically sign. The CDI & [facility] Coding staff will review the response and follow-up if needed. Please note: Queries are made part of the Legal Health Record. If you have any questions, please contact the author of this message via ITS. Dr. Darien Vincent, Conflicting documentation has been found in the medical record. As attending physician, please provide clarification. Per your 11/26 PN-Status post left total knee arthroplasty contact dermatitis/cellulitis. Per your DS- Contact dermatitis left knee, history of left total knee arthroplasty. Per your PN 11/27 - There is obvious erythema and skin blistering noted on the periphery of the incision on both the medial and lateral. No effusion present on the knee. History/Risk Factors: Underwent revision of left total knee arthroplasty earlier this week. Clinical Indicators: Presents with blistering around her left knee. She notes she's been putting tape in that area. She denies any fevers or chills. She note the blisters have been draining. Cellulitis left knee per H&P. Treatment: IV Decadron to help with inflammatory process. Prophylactically put her on IV Ancef. Discharged on Keflex 500 mg PO Q6HR for 7 days. Please clarify which diagnosis is most appropriate: [ ] Cellulitis of left knee ruled in [ ] Cellulitis of left knee ruled out [ ] Other (please specify) [ x ] Unable to determine MTDD
--- NOTE | 2020-12-30 08:28 | CDI ---
Documentation Clarification Form Date: 12/30/20 From: Zenia Heller Admit Date: 11/23/2020 11:29:00 PM Patient Name: Trudy Magallon Visit Number: [id number] Discharge Date: 11/27/2020 04:50:00 PM ATTENTION: The Clinical Documentation Specialists (CDI) and [facility] Coding Staff appreciate your assistance in clarifying documentation. Please respond to the clarification below the line at the bottom and electronically sign. The CDI & [facility] Coding staff will review the response and follow-up if needed. Please note: Queries are made part of the Legal Health Record. If you have any questions, please contact the author of this message via ITS. Dr. Darien Vincent, Contact dermatitis is documented in the H&P, DS and PNs, but is not noted in subsequent documentation. Clarification is requested. History/Risk Factors: S/P left total knee arthroplasty revision earlier this week Clinical Indicators: She developed a rash over her left knee that became significantly worse. It was determined she had a severe contact dermatitis that was likely due to the surgical glue/tape system that was used. Treatment: IV antibiotics and IV steroids Please clarify if the contact dermatitis is: [ ] Allergic contact dermatitis [ x ] Contact dermatitis, irritant [ ] Contact dermatitis unspecified [ ] Other condition, please specify [ ] Unable to determine MTDD
== END 2020-11-27 16:50 | disposition home health service (06) | DRG 607 ==
LOC: EC 19:03 → 4SSUR 23:29 → 6PED 11-24 12:47
PROVIDERS: ADMIT Orthopaedic Surgery; ATTEND Orthopaedic Surgery
DX: L24.4 Irritant contact dermatitis due to drugs in contact with skin (principal); L03.116 Cellulitis of left lower limb; I10 Essential (primary) hypertension; Z20.822 Contact with and (suspected) exposure to COVID-19; J45.909 Unspecified asthma, uncomplicated; M19.90 Unspecified osteoarthritis, unspecified site; K21.9 Gastro-esophageal reflux disease without esophagitis; I83.90 Asymptomatic varicose veins of unspecified lower extremity; R35.0 Frequency of micturition; Z79.01 Long term (current) use of anticoagulants; Z79.899 Other long term (current) drug therapy; Z96.653 Presence of artificial knee joint, bilateral; Z86.718 Personal history of other venous thrombosis and embolism; Z88.0 Allergy status to penicillin; Z88.8 Allergy status to other drugs, medicaments and biological substances; Z80.9 Family history of malignant neoplasm, unspecified; Y92.009 Unspecified place in unspecified non-institutional (private) residence as the place of occurrence of the external cause
CPT/HCPCS: 36415; 80053; 83605; 85025; 85610; 85730; 87040; 87635; 96361; 96374; 99285

== ENCOUNTER → 2021-03-05 | Outpatient (CLI) | payer BC, MEDICARE ==
--- NOTE | 2021-03-10 08:25 | MM ---
Reason for exam: screening (asymptomatic). Last mammogram was performed 2 years and 5 months ago. Physical Findings: A clinical breast exam by your physician is recommended on an annual basis and results should be correlated with mammographic findings. MG 3D Screening Mammo W/Cad Bilateral CC and MLO view(s) were taken. Prior study comparison: October 14, 2018, bilateral MG screening mammo w CAD. July 19, 2017, bilateral MG screening mammo w CAD. There are scattered fibroglandular densities. No significant changes when compared with prior studies. ASSESSMENT: Negative, BI-RAD 1 RECOMMENDATION: Routine screening mammogram of both breasts in 1 year.
== END | disposition home or self-care (01) ==
LOC: RADMAMWWP 11:14
PROVIDERS: ATTEND Family Medicine
DX: Z12.31 Encounter for screening mammogram for malignant neoplasm of breast (principal)
CPT/HCPCS: 77063; 77067

== ENCOUNTER → 2021-04-17 | Outpatient (CLI) | payer BC, MEDICARE ==
--- NOTE | 2021-04-18 07:15 | US ---
EXAMINATION TYPE: US pelvic complete DATE OF EXAM: 04/17/2021 COMPARISON: NONE CLINICAL HISTORY: N91.2 AMENORRHEA. no cycle for 9 months and then has bleeding for 1 week, TECHNIQUE: TA. Transabdominal sonographic images of the pelvis were acquired. pt did not want TV Date of LMP: 1 week of bleeding, unknown EXAM MEASUREMENTS: Uterus: 9.3 x 6.2 x 5.4 cm Endometrial Stripe: 0.5 cm Right Ovary: 2.0 x 1.5 x 1.6 cm Left Ovary: 2.6 x 2.1 x 2.0 cm 1. Uterus: Anteverted wnl 2. Endometrium: wnl 3. Right Ovary: wnl 4. Left Ovary: wnl 5. Bilateral Adnexa: wnl 6. Posterior cul-de-sac: wnl IMPRESSION: 1. Normal appearance pelvic ultrasound
== END | disposition home or self-care (01) ==
LOC: RADUSWWP 16:24
PROVIDERS: ATTEND Family Medicine
DX: N91.2 Amenorrhea, unspecified (principal)
CPT/HCPCS: 76856

== ENCOUNTER → 2021-05-13 | Outpatient (CLI) | payer BC, MEDICARE ==
[2021-05-13 14:50] LABS: Basophils % (A) 1 %; Eosinophils # (A) 0.1 k/uL (0-0.7); Eosinophils % (A) 1 %; HCT 36.1 % (34.0-46.0); HGB 11.6 gm/dL (11.4-16.0); Lymphocytes # (A) 2.2 k/uL (1.0-4.8); Lymphocytes % (A) 35 %; MCH 31.3 pg (25.0-35.0); MCHC 32.1 g/dL (31.0-37.0); MCV 97.7 fL (80.0-100.0); Mean Platelet Volume 8.8; Monocytes # (A) 0.4 k/uL (0-1.0); Monocytes % (A) 6 %; Neutrophils # (A) 3.3 k/uL (1.3-7.7); Neutrophils % (A) 54 %; Platelet Count 254 k/uL (150-450); RDW 13.2 % (11.5-15.5); WBC 6.1 k/uL (3.8-10.6)
== END | disposition home or self-care (01) ==
LOC: LABPAT 12:51
PROVIDERS: ATTEND Obstetrics & Gynecology
DX: Z01.812 Encounter for preprocedural laboratory examination (principal)
CPT/HCPCS: 36415; 85025

== ENCOUNTER 2021-05-20 06:03 | Day surgery (SDC) | payer BC, MEDICARE ==
[2021-05-13 15:40] VITALS: BMI 33.1
--- NOTE | 2021-05-19 08:00 | P.HPOB ---
History of Present Illness H&P Date: 05/19/21 Chief Complaint: Cervical lesion This patient is a pleasant 55 yr female who presented to my office with complaints of pain with intercourse and palpable vaginal growth. Examination revealed a 1.5cm solid growth of the anterior cervix that appears benign, most likely a cervical fibroid. Patient desires removal due to symptoms. Review of Systems Genitourinary: Reports as per HPI Past Medical History Past Medical History: Asthma, Deep Vein Thrombosis (DVT), GERD/Reflux, Hypertension, Osteoarthritis (OA) Additional Past Medical History / Comment(s): varicose veins,urinary freq, DVT post Lt total knee, asthma as a child, sinus pressure problems currently History of Any Multi-Drug Resistant Organisms: None Reported Past Surgical History: Joint Replacement, Orthopedic Surgery Additional Past Surgical History / Comment(s): arthroscopic augusta knees, augusta knee replacements & then revisions augusta., pain procedures, colonoscopy Past Anesthesia/Blood Transfusion Reactions: No Reported Reaction Additional Past Anesthesia/Blood Transfusion Reaction / Comment(s): takes awhile to wake up, has woke up during surgery in past ,no hx blood transfusion Past Psychological History: No Psychological Hx Reported Smoking Status: Never smoker Past Alcohol Use History: None Reported Past Drug Use History: None Reported - Past Family History Mother Family Medical History: No Reported History Sister(s) Family Medical History: Cancer Medications and Allergies Home Medications Medication Instructions Recorded Confirmed Type lisinopriL 30 mg PO DAILY 11/24/20 05/13/21 History Acetaminophen [Tylenol Extra 500 mg PO Q6H PRN 05/13/21 05/13/21 History Strength] Fluticasone Nasal [place] [Flonase 2 spray EA NOSTRIL DAILY 05/13/21 05/13/21 History Nasal [place]] Ibuprofen 800 mg PO Q8H PRN 05/13/21 05/13/21 History Multivitamins, Thera [Multivitamin 1 tab PO DAILY 05/13/21 05/13/21 History (formulary)] Allergies Allergy/AdvReac Type Severity Reaction Status Date / Time amoxicillin [From Augmentin] Allergy Rash/Hives Verified 05/13/21 15:16 clavulanic acid Allergy Rash/Hives Verified 05/13/21 15:16 [From Augmentin] Exam - OBG Physical Exam Abdomen: bowel sounds normal, no diffuse tenderness, no bruit present, no guarding noted, no hepatomegaly, no splenomegaly, no mass Vulva: both: normal Vagina: normal moisture, no discharge Cervix: lesion (1.5cm anterior cervix; solid) Uterus: normal size, normal contour Assessment and Plan Assessment: This is a pleasant 55 yr old with solid anterior cervical lesion, appears benign but patient is symptomatic so plan is excision. I have discussed this surgery and risks: infection, bleeding and possible recurrence. All of her questions were answered and a written consent obtained. s (1) Cervical lesion Status: Acute Code(s): N88.9 - NONINFLAMMATORY DISORDER OF CERVIX UTERI, UNSPECIFIED SNOMED Code(s): 930565739
[~2021-05-20 06:03] MED LIST changes: -ACETAMINOPHEN TAB 500 MG TAB PO PRN; -DEXAMETHASONE SOD PHOSPHATE 4 MG/ML 1 ML VIAL IV ONE; -LIDOCAINE 1% (10MG/ML) FOR IV START INTRADERMA PRN; -MELOXICAM 7.5 MG TAB PO PRN; -MIDAZOLAM 2 MG/2 ML VIAL IV PRN; -ONDANSETRON 4 MG/2 ML VIAL IVP ONE; +Pre Op ABX Message 1 EACH MISC MISCELLANE ONE; -TRANEXAMIC ACID 1,000 MG in SODIUM CHLORIDE 0.9% 100 ML IVPB PRN
[2021-05-20] MEDS ORDERED: LACTATED RINGERS 1,000 ML IV SCH (06:26)
[2021-05-20] MEDS ORDERED: ONDANSETRON 4 MG/2 ML VIAL ONE (06:41)
[2021-05-20] MEDS ORDERED: ONDANSETRON 4 MG/2 ML VIAL IVP ONE (06:44)
[2021-05-20] MEDS ORDERED: DEXAMETHASONE SOD PHOSPHATE 4 MG/ML 1 ML VIAL IVP ONE (06:44)
[2021-05-20] MEDS ORDERED: LIDOCAINE 1% INJ 10MG/ML (20 ML MDV) ONE (06:48)
[2021-05-20] MEDS ORDERED: LABETALOL 5 MG/ML VIAL MDV ONE (06:48)
[2021-05-20] MEDS ORDERED: KETOROLAC 15 MG/ML 1 ML VIAL ONE (06:48)
[2021-05-20] MEDS ORDERED: PROPOFOL 10 MG/ML 20 ML VIAL IV ONE (06:48)
[2021-05-20] MEDS ORDERED: MIDAZOLAM 2 MG/2 ML VIAL ONE (06:48)
[2021-05-20] MEDS ORDERED: fentaNYL (PF) 50 MCG/ML 2 ML AMP ONE (06:48)
--- NOTE | 2021-05-20 07:21 | P.OP ---
Date of Procedure: 05/20/21 Preoperative Diagnosis: Cervical growths Postoperative Diagnosis: Same Procedure(s) Performed: Excision of cervical growths 2. Anesthesia: MAC Surgeon: Arturo Garcia Estimated Blood Loss (ml): 5 Urine output (ml): 25 Pathology: other (Cervical growth 2) Condition: stable Disposition: PACU Indications for Procedure: Please see dictated H&P for intimate details of this patient's admission. In brief summary this is a pleasant 55-year-old female who is having discomfort with intercourse and noted to have a 1-1/2 cm cervical growth with a broad base. Due to patient's symptoms I recommended removal. Due to its location in broad base I felt it was safest to do this in the operating room. Patient understands this surgery and risks and risks of infection, bleeding. All the patient's questions are answered written consent obtained. Operative Findings: This patient had a 1-1/2 cm growths of the anterior cervix and a smaller 1 cm growth of the posterior cervix. Appeared benign. Description of Procedure: This patient is taken to the operating room where she is laid in the supine position. She subsequently undergoes general anesthesia without incident. With an adequate level of anesthesia she's placed in dorsal lithotomy position. She has a vaginal perineal prep and drape. I placed a weighted speculum the posterior vagina. Examination under anesthesia shows a 1-1/2 cm growths of the anterior cervix with a broad base and a smaller 1 cm growth in the posterior cervix. I drain her bladder at this time for 25 mL of clear urine. I then grasped the lower growths and with Bovie set at 40 cutting cautery setting I completely excise it. Similarly the anterior growth is removed. Cauterization is done of the margins of the bed. Excellent hemostasis is noted. This done the procedure is ended. Weighted speculum is removed. All counts are correct 3. There are no complications. Patient's taken recovery room in satisfactory condition.
[2021-05-20 07:27] VITALS: RESP 16; TEMP 98.4
[2021-05-20 08:42] VITALS: BP 153/96; PULSE 85
== END 2021-05-20 08:56 | disposition home or self-care (01) ==
LOC: OR 06:03
PROVIDERS: ATTEND Obstetrics & Gynecology
DX: N88.8 Other specified noninflammatory disorders of cervix uteri (principal)
CPT/HCPCS: 57500; 81025; J2250; J1100; J2405; J2001; J3010; J1885; J2704; 88305

== ENCOUNTER → 2022-02-04 | Outpatient (CLI) | payer BC, MEDICARE ==
[2022-02-04 14:47] LABS: Basophils # (A) 0.04 X 10*3/uL (0.00-0.10); Basophils % (A) 0.5 %; Eosinophils # (A) 0.24 X 10*3/uL (0.04-0.35); Eosinophils % (A) 2.7 %; HCT 37.1 % (37.2-46.3); HGB 11.8 g/dL (12.0-15.0); Immature Grans, Automated 0.3 %; Lymphocytes % (A) 30.8 %; MCHC 31.8 g/dL (32.0-37.0); MCV 97.4 fL (80.0-97.0); Mean Platelet Volume 11.9 fL (9.5-12.2); Monocytes # (A) 0.48 X 10*3/uL (0.20-1.00); Monocytes % (A) 5.5 %; NRBC Per 100 WBC 0 /100 WBCS (0.0-0.0); Neutrophils # (A) 5.28 X 10*3/uL (1.80-7.70); Neutrophils % (A) 60.2 %; Platelet Count 282 X 10*3/uL (140-440); RBC 3.81 X 10*6/uL (4.10-5.20); RDW 13.3 % (11.5-14.5); WBC 8.77 X 10*3/uL (4.50-10.00)
[2022-02-04 16:34] LABS: ALT 19 U/L (8-44); AST 23 U/L (13-35); African American GFR (CKD) 119.8 (60.0-200.0); Albumin 4.3 g/dL (3.8-4.9); Albumin/Globulin Ratio 1.65 (1.60-3.17); Alkaline Phosphatase 79 U/L (41-126); Blood Urea Nitrogen 20.1 mg/dL (9.0-27.0); Calcium 9.3 mg/dL (8.7-10.3); Chloride 104 mmol/L (96-109); Chol/HDL Ratio 3.23 Ratio; Globulin 2.6 g/dL (1.6-3.3); Glucose 100 mg/dL (70-110); LDL Cholesterol,Calculated 99.6 mg/dL (0.0-131.0); Non-African American GFR(CKD) 103.3 (60.0-200.0); Potassium 4.4 mmol/L (3.5-5.5); Sodium 138 mmol/L (135-145); Total Protein 6.9 g/dL (6.2-8.2); VLDL Calculation 12.18 mg/dL (5.00-40.00)
== END | disposition home or self-care (01) ==
LOC: LABWHC1 09:30
PROVIDERS: ATTEND Family Medicine
DX: I10 Essential (primary) hypertension (principal); E55.9 Vitamin D deficiency, unspecified
CPT/HCPCS: 36415; 80053; 80061; 82306; 83036; 85025

== ENCOUNTER → 2023-08-12 | Outpatient (CLI) | payer BC, MEDICARE ==
--- NOTE | 2023-08-13 10:50 | MM ---
Reason for Exam: Screening (asymptomatic). Last mammogram was performed 2 year(s) and 5 month(s) ago. Patient History: Menarche at age 14. First Full-Term at age 22. Postmenopausal. Risk Values: Jennifer 5 year model risk: 1.1%. NCI Lifetime model risk: 7.4%. Prior Study Comparison: 07/19/2017 Bilateral Screening Mammogram, [facility]. 10/14/2018 Bilateral Screening Mammogram, [facility]. 03/05/2021 Bilateral Screening Mammogram, [facility]. Tissue Density: There are scattered fibroglandular densities. Findings: Analyzed By CAD. There is no suspicious group of microcalcifications and benign-appearing calcifications. The upper outer quadrant there is a 5 mm nodule.. Overall Assessment: Incomplete: need additional imaging evaluation, BI-RAD 0 Management: Special View Mammogram of the right breast. . Patient should continue monthly self-breast exams. A clinical breast exam by your physician is recommended on an annual basis. This exam should not preclude additional follow-up of suspicious palpable abnormalities. Note on Jennifer scores and lifetime risk: 1. A Jennifer score greater than 3% is considered moderate risk. If this is the case, consider specialist referral to assess eligibility for a risk reducing agent. 2. If overall lifetime risk for the development of breast cancer is 20% or higher, the patient may qualify for future screening with alternating mammogram and breast MRI. Electronically signed and approved by: Lior Wheat M.D. Radiologis
== END | disposition home or self-care (01) ==
LOC: RADMAMWWP 16:04
PROVIDERS: ATTEND Obstetrics & Gynecology
DX: Z12.31 Encounter for screening mammogram for malignant neoplasm of breast (principal); Z78.0 Asymptomatic menopausal state
CPT/HCPCS: 77063; 77067

== ENCOUNTER → 2023-08-17 | Outpatient (CLI) | payer BC, MEDICARE ==
--- NOTE | 2023-08-17 09:07 | MM ---
Reason for Exam: Additional evaluation requested from abnormal screening. Last screening mammogram was performed less than 1 month ago. Patient History: Menarche at age 14. First Full-Term at age 22. Postmenopausal. Risk Values: Jennifer 5 year model risk: 1.1%. NCI Lifetime model risk: 7.4%. Prior Study Comparison: 07/23/2005 Bilateral Screening Mammogram, [facility]. 04/17/2009 Bilateral Screening Mammogram, [facility]. 06/16/2010 Bilateral Screening Mammogram, [facility]. 09/26/2013 Bilateral Screening Mammogram, [facility]. 07/19/2017 Bilateral Screening Mammogram, [facility]. 10/14/2018 Bilateral Screening Mammogram, [facility]. 03/05/2021 Bilateral Screening Mammogram, [facility]. 08/12/2023 Bilateral MG 3D screening mammo w/cad, [facility]. Tissue Density: Right: There are scattered fibroglandular densities. Findings: Analyzed By CAD. There is a small 5 mm isodense circumscribed nodule upper outer quadrant anterior depth approximately 7 cm from the nipple. Further ultrasound evaluation recommended. Overall Assessment: Incomplete: need additional imaging evaluation, BI-RAD 0 Management: Diagnostic Breast Ultrasound of the right breast. Electronically signed and approved by: Jocelyn Bateman M.D. Radiologist
--- NOTE | 2023-08-17 09:44 | USB ---
Reason for Exam: Additional evaluation requested from abnormal screening. Patient History: Menarche at age 14. First Full-Term at age 22. Postmenopausal. Risk Values: Jennifer 5 year model risk: 1.1%. NCI Lifetime model risk: 7.4%. Technique: Method: Targeted. Doppler: Color. Patient Position: LPO. Prior Study Comparison: 10/14/2018 Bilateral Screening Mammogram, [facility]. 03/05/2021 Bilateral Screening Mammogram, [facility]. 08/12/2023 Bilateral MG 3D screening mammo w/cad, [facility]. Baseline Ultrasound. Findings: The upper outer quadrant of the right breast, the axilla of the right breast and the retroareolar of the right breast were scanned. Targeted ultrasound upper outer quadrant right breast including scanning of the subareolar region and axilla. At the 11:00 position, 4 cm from the nipple, there is a 6 mm benign cyst, likely mammographic correlate. Six-month follow-up mammogram could be performed. No other solid or cystic lesion or axillary lymphadenopathy. Overall Assessment: Probably benign, BI-RAD 3 Management: Diagnostic Mammogram of the right breast in 6 months. A clinical breast exam by your physician is recommended on an annual basis and results should be correlated with mammographic findings. This exam should not preclude additional follow-up of suspicious palpable abnormalities. Results were given to the patient verbally at the time of exam. Electronically signed and approved by: Jocelyn Bateman M.D. Radiologist
== END | disposition home or self-care (01) ==
LOC: RADMAMWWP 08:05
PROVIDERS: ATTEND Obstetrics & Gynecology
DX: R92.323 Mammographic fibroglandular density, bilateral breasts (principal); Z78.0 Asymptomatic menopausal state
CPT/HCPCS: 77061; 77065